=== PATIENT | female | born 1940 | race Caucasian/White ===

== ENCOUNTER 2018-09-15 09:57 | Inpatient (IN) ==
[2018-09-15] MEDS ORDERED: NS 1000 ML 1,000 ML IV ONE (11:17)
[2018-09-15] MEDS ORDERED: PHENERGAN INJ 25 MG IVP ONE (11:19)
--- NOTE | 2018-09-15 11:24 | DR.NAUSEAF ---
HPI Time Seen Time Seen by Provider: 09/15/18 11:10 Primary Care Physician Primary Care Physician: JESSIE LI Complaints Chief Complaint:: PATIENT STATED THAT SHE HAS BEEN HAVING N/V/D SINCE LAST NIGHT. PATIENT STATED THAT SHE THINKS SHE ATE SOMETHING THAT WAS BAD. FRIEND STATED THAT SHE HAS BEEN SEEING JESSIE IN THE OFFICE FOR THE VIRUS AND A IN FECTION OF SOME KIND. SHE IS ALSO COMPLAINING OF WEAKNESS. Source History Provided: Patient Mode of Arrival Mode of Arrival: Ambulatory Timing Onset of Chief Complaint: 09/15/18 PMH PMH Past Medical History: Yes Past Medical History: Diabetes, Hypertension and ME Past Surgical History: Yes Surgical History: Cholecystectomy, Hysterectomy and Ortho Surgery Family History History of Family Medical Conditions: Yes Family Medical History: Diabetes Mellitus, Heart Failure and Hypertension Social History Does patient currently use any type of tobacco product: No Have you used tobacco products in the last 12 months: No Type of Tobacco Use: None Does any household member use tobacco: No Alcohol Use: None Do you use any recreational Drugs:: No Lives With: Alone Lives Where: Home infectious screening In the last 2 months have you had wt loss of >10#?: NO Have you had fever, night sweats or hemotysis?: No Have you traveled outside the country in the last 6 months?: No Isolation: Standard ROS Review of Systems Constitutional: Weakness Eyes: No Symptoms Reported ENTM: No Symptoms Reported Respiratoy: No Symptoms Reported Cardiovascular: No Symptoms Reported Gastrointestinal/Abdominal: Nausea and Vomiting; negative No Symptoms Reported, See HPI, Abdominal Pain, Constipation, Diarrhea, Food Intolerance and Other Genitourinary: No Symptoms Reported Neurological: No Symptoms Reported Musculoskeletal: No Symptoms Reported Integumentary: No Symptoms Reported Hematologic/Lymphatic: No Symptoms Reported Endocrine: No Symptoms Reported Psychiatric: No Symptoms Reported All Other Systems: Reviewed and Negative PE Vital Signs Vitals: Temperature 97.1 F Pulse Rate 95 Respiratory Rate 20 Blood Pressure [Right Arm] 142/64 Blood Pressure [Left Arm] 122/63 Blood Pressure 216/103 O2 Sat by Pulse Oximetry 97 General Limitations: No Limitations General Appearance: Alert and In No Apparent Distress Head Head Exam: Normal Inspection and Atraumatic Eyes Eye exam: Normal Appearance and EOMI ENT ENT Exam: Normal Exam and Normal Oropharynx Neck Neck Exam: Normal Inspection, Full ROM and Trachea Midline Chest Chest Inspection: Normal Inspection and Symmetric Chest Wall Rise Respiratory Respiratory Exam: Normal Lung Sounds Bilat Cardiovascular Cardiovascular Exam: Regular Rate, Normal Rhythm, Normal Heart Sounds, +S1 and +S2 Abdominal Exam Abdominal Exam: Normal Inspection, Normal Bowel Sounds and Soft Rectal Rectal Exam: Deferred External Exam: Female: Deferred Extremities Extremities Exam: Normal Inspection and Full ROM Back Back Exam: Normal Inspection Neurologic Neurological Exam: Alert and Oriented X3 Psychiatric Psychiatric Exam: Normal Affect and Normal Mood Skin Skin Exam: Warm, Dry and Normal Color ROR Labs Reviewed Result Diagrams: 09/15/18 11:42 09/15/18 11:42 Laboratory: WBC 7.7 X10^3/uL (3.6-10.0) 09/15/18 11:42 RBC 4.11 X10^6/uL (3.5-5.4) 09/15/18 11:42 Hgb 13.5 g/dL (12.0-16.0) 09/15/18 11:42 Hct 38.4 % (36.0-47.0) 09/15/18 11:42 MCV 93.2 fL (80.0-100.0) 09/15/18 11:42 MCH 32.8 pg (27.0-34.0) 09/15/18 11:42 MCHC 35.2 g/dL (33.0-35.0) H 09/15/18 11:42 RDW 13.6 % (11.6-16.5) 09/15/18 11:42 Plt Count 225 X10^3/uL (150.0-450.0) 09/15/18 11:42 MPV 8.8 fL (7.4-11.0) 09/15/18 11:42 Neut % (Auto) 64.7 % (42.0-75.0) 09/15/18 11:42 Lymph % (Auto) 23.6 % (21.0-51.0) 09/15/18 11:42 [place] % (Auto) 7.4 % (0.0-13.0) 09/15/18 11:42 Eos % (Auto) 3.3 % (0.9-2.9) H 09/15/18 11:42 Baso % (Auto) 1.0 % (0.2-1.0) 09/15/18 11:42 Neut # (Auto) 5.0 x10^3/uL (2.2-4.8) H 09/15/18 11:42 Lymph # (Auto) 1.8 X10^3/uL (1.3-2.9) 09/15/18 11:42 [place] # (Auto) 0.6 x10^3/uL (0.3-0.8) 09/15/18 11:42 Eos # (Auto) 0.3 x10^3/uL (0.0-0.2) H 09/15/18 11:42 Baso # (Auto) 0.1 X10^3/uL (0.0-0.1) 09/15/18 11:42 Absolute Nucleated RBC 0.0 /100WBC 09/15/18 11:42 Sodium 136 mmol/L (136-145) 09/15/18 11:42 Corrected Sodium 136 mmol/L (136-145) 09/15/18 11:42 Potassium 4.2 mmol/L (3.5-5.1) 09/15/18 11:42 Chloride 102 mmol/L (98-107) 09/15/18 11:42 Carbon Dioxide 25.9 mmol/L (21-32) 09/15/18 11:42 BUN 22 mg/dL (7-18) H 09/15/18 11:42 Creatinine 1.12 mg/dL (0.55-1.02) H 09/15/18 11:42 Est GFR (MDRD) Af Amer > 60 (>60) 09/15/18 11:42 Est GFR (MDRD) Non-Af 50 (>60) L 09/15/18 11:42 Glucose 115 mg/dL (65-99) H 09/15/18 11:42 Calcium 8.9 mg/dL (8.5-10.1) 09/15/18 11:42 Amylase 75 Units/L (25-115) 09/15/18 11:25 Lipase 162 Units/L (73-393) 09/15/18 11:25 XRAY XRAY Interpreted by: Radiologist XRAY Findings: AAS: no acute cardiopulmonary disease. No evidence for obstruction or perfo Diagnosis Discharge Problem: Gastroenteritis, Acute dehydration
[2018-09-15] MEDS ORDERED: PHENERGAN INJ 25 MG ONE (11:29)
[2018-09-15] MEDS ORDERED: NS 1000 ML 1,000 ML ONE (11:29)
--- NOTE | 2018-09-15 11:50 | RAD ---
Examination: Abdomen series with PA chest, four views History: Pain nausea and vomiting Findings: PA chest is essentially normal. Central mediastinal and hilar area limited by overlying metallic clothing artifacts. Abdomen: Additional supine and upright views of abdomen demonstrate normal gas pattern. Surgical clips right upper quadrant. There is no evidence for bowel obstruction, perforation, mass formation or pathologic calcification. Impression: No acute chest or abdominal abnormality noted. Reported By:
[2018-09-15 11:55] LABS: BASOPHILS # (AUTO) 0.1 X10^3/uL (0.0-0.1); EOSINOPHILS # (AUTO) 0.3 x10^3/uL (0.0-0.2); EOSINOPHILS % (AUTO) 3.3 % (0.9-2.9); HEMATOCRIT 38.4 % (36.0-47.0); HEMOGLOBIN 13.5 g/dL (12.0-16.0); LYMPHOCYTES # (AUTO) 1.8 X10^3/uL (1.3-2.9); LYMPHOCYTES % (AUTO) 23.6 % (21.0-51.0); MEAN CORPUSCULAR HEMOGLOBIN 32.8 pg (27.0-34.0); MEAN CORPUSCULAR HGB CONC 35.2 g/dL (33.0-35.0); MEAN CORPUSCULAR VOLUME 93.2 fL (80.0-100.0); MEAN PLATELET VOLUME 8.8 fL (7.4-11.0); MONOCYTES # (AUTO) 0.6 x10^3/uL (0.3-0.8); MONOCYTES % (AUTO) 7.4 % (0.0-13.0); NEUTROPHILS % (AUTO) 64.7 % (42.0-75.0); PLATELET COUNT 225 X10^3/uL (150.0-450.0); RED BLOOD COUNT 4.11 X10^6/uL (3.5-5.4); RED CELL DISTRIBUTION WIDTH 13.6 % (11.6-16.5); WHITE BLOOD COUNT 7.7 X10^3/uL (3.6-10.0)
[2018-09-15 12:04] LABS: BLOOD UREA NITROGEN 22 mg/dL (7-18); CALCIUM 8.9 mg/dL (8.5-10.1); CARBON DIOXIDE 25.9 mmol/L (21-32); CHLORIDE 102 mmol/L (98-107); COR NA(FOR HYPERGLY) 136 mmol/L (136-145); CREATININE 1.12 mg/dL (0.55-1.02); SODIUM 136 mmol/L (136-145); eGFR NON BLACK RACES 50 (>60)
[2018-09-15 12:20] LABS: AMYLASE 75 Units/L (25-115); LIPASE 162 Units/L (73-393)
[2018-09-15] MEDS ORDERED: ZOFRAN INJ 4 MG VIAL IVP PRN (16:03)
[2018-09-15] MEDS ORDERED: PREVNAR 13 IM ONE (16:49)
[2018-09-15] MEDS ORDERED: NS 1000 ML 1,000 ML IV SCH (17:00)
[2018-09-15] MEDS ORDERED: COREG TAB 3.125 MG PO SCH (21:00)
[2018-09-15] MEDS: COREG TAB 3.125 MG PO SCH (21:35)
[2018-09-16 04:56] LABS: BLOOD UREA NITROGEN 14 mg/dL (7-18); CARBON DIOXIDE 22.6 mmol/L (21-32); CHLORIDE 109 mmol/L (98-107); CREATININE 0.96 mg/dL (0.55-1.02); SODIUM 141 mmol/L (136-145); eGFR NON BLACK RACES 60 (>60)
[2018-09-16 05:34] LABS: BASOPHILS # (AUTO) 0.1 X10^3/uL (0.0-0.1); BASOPHILS % (AUTO) 0.9 % (0.2-1.0); EOSINOPHILS # (AUTO) 0.3 x10^3/uL (0.0-0.2); EOSINOPHILS % (AUTO) 3.9 % (0.9-2.9); HEMATOCRIT 33.4 % (36.0-47.0); HEMOGLOBIN 11.5 g/dL (12.0-16.0); LYMPHOCYTES # (AUTO) 2.2 X10^3/uL (1.3-2.9); MEAN CORPUSCULAR HEMOGLOBIN 30.9 pg (27.0-34.0); MEAN CORPUSCULAR HGB CONC 34.5 g/dL (33.0-35.0); MEAN CORPUSCULAR VOLUME 89.6 fL (80.0-100.0); MEAN PLATELET VOLUME 8.2 fL (7.4-11.0); MONOCYTES # (AUTO) 0.6 x10^3/uL (0.3-0.8); MONOCYTES % (AUTO) 9.3 % (0.0-13.0); NEUTROPHILS # (AUTO) 3.4 x10^3/uL (2.2-4.8); NEUTROPHILS % (AUTO) 51.9 % (42.0-75.0); PLATELET COUNT 179 X10^3/uL (150.0-450.0); RED BLOOD COUNT 3.73 X10^6/uL (3.5-5.4); RED CELL DISTRIBUTION WIDTH 13.9 % (11.6-16.5); WHITE BLOOD COUNT 6.5 X10^3/uL (3.6-10.0)
[2018-09-16] MEDS ORDERED: TYLENOL 325 MG TAB PO PRN (08:30)
[2018-09-16] MEDS: SYNTHROID 112 mcg TAB PO SCH (08:31)
[2018-09-16] MEDS: PROTONIX INJ 40 MG VIAL IVP SCH (08:31)
[2018-09-16] MEDS: COREG TAB 3.125 MG PO SCH ×2 (08:31→21:06)
[2018-09-16] MEDS ORDERED: TYLENOL 325 MG TAB PO ONE (08:54)
[2018-09-16] MEDS: NS 1000 ML 1,000 ML IV SCH (13:49)
[2018-09-16] MEDS ORDERED: LEVAQUIN PREMIX IV 500 MG 500 MG/100 ML BAG IV ONE (14:40)
[2018-09-16] MEDS ORDERED: PREVNAR 13 IM ONE (14:41)
[2018-09-16] MEDS: LEVAQUIN PREMIX IV 500 MG 500 MG/100 ML BAG IV SCH (14:46)
[2018-09-16] MEDS ORDERED: ROBITUSSIN DM PO PRN (15:00)
[2018-09-16] MEDS: ROBITUSSIN DM PO SCH (21:06)
[2018-09-17] MEDS: ROBITUSSIN DM PO SCH ×4 (02:05→20:20)
[2018-09-17] MEDS: NS 1000 ML 1,000 ML IV SCH ×2 (02:06→16:10)
[2018-09-17 05:40] LABS: ALANINE AMINOTRANSFERASE 17 Units/L (12-78); ALBUMIN 2.6 g/dL (3.4-5.0); ALKALINE PHOSPHATASE 51 Units/L (46-116); ASPARTATE AMINO TRANSFERASE 16 Units/L (15-37); BLOOD UREA NITROGEN 9 mg/dL (7-18); CALCIUM 7.7 mg/dL (8.5-10.1); CARBON DIOXIDE 22.3 mmol/L (21-32); CHLORIDE 108 mmol/L (98-107); COR CA(FOR HYPOALB) 8.8 mg/dL (8.5-10.1); CREATININE 0.98 mg/dL (0.55-1.02); SODIUM 142 mmol/L (136-145); TOTAL PROTEIN 5.5 g/dL (6.4-8.2); eGFR NON BLACK RACES 58 (>60)
[2018-09-17 05:55] VITALS: BMI 30.2
[2018-09-17 05:56] LABS: BASOPHILS % (AUTO) 0.5 % (0.2-1.0); EOSINOPHILS # (AUTO) 0.3 x10^3/uL (0.0-0.2); EOSINOPHILS % (AUTO) 3.4 % (0.9-2.9); HEMOGLOBIN 10.9 g/dL (12.0-16.0); LYMPHOCYTES # (AUTO) 1.9 X10^3/uL (1.3-2.9); LYMPHOCYTES % (AUTO) 23.8 % (21.0-51.0); MEAN CORPUSCULAR HEMOGLOBIN 32.6 pg (27.0-34.0); MEAN CORPUSCULAR HGB CONC 35.1 g/dL (33.0-35.0); MEAN PLATELET VOLUME 8.3 fL (7.4-11.0); MONOCYTES # (AUTO) 0.8 x10^3/uL (0.3-0.8); MONOCYTES % (AUTO) 10.1 % (0.0-13.0); NEUTROPHILS # (AUTO) 4.9 x10^3/uL (2.2-4.8); NEUTROPHILS % (AUTO) 62.2 % (42.0-75.0); PLATELET COUNT 172 X10^3/uL (150.0-450.0); RED BLOOD COUNT 3.33 X10^6/uL (3.5-5.4); RED CELL DISTRIBUTION WIDTH 13.8 % (11.6-16.5); WHITE BLOOD COUNT 7.8 X10^3/uL (3.6-10.0)
[2018-09-17] MEDS: LEVAQUIN PREMIX IV 500 MG 500 MG/100 ML BAG IV SCH (09:35)
[2018-09-17] MEDS: SYNTHROID 112 mcg TAB PO SCH (09:36)
[2018-09-17] MEDS: PROTONIX INJ 40 MG VIAL IVP SCH (09:36)
[2018-09-17] MEDS: COREG TAB 3.125 MG PO SCH ×2 (09:36→20:19)
--- NOTE | 2018-09-17 13:32 | RAD ---
History: Fever and cough Study: PA and lateral chest Comparison: October 18, 2014 Findings: The lungs are grossly clear and the heart and mediastinum are unremarkable. There is no edema or effusion. No bony abnormality is demonstrated. Impression: No acute cardiopulmonary disease Reported By:
--- NOTE | 2018-09-17 13:53 | PCM.PROG ---
Progress Note - Progress Note for Day of Date of Exam: 09/17/18 - Subjective Subjective: 78 WF ER ADMISSION AFTER PRESENTING WITH CO SEVERE WEAKENSS, N/V/D. PT HAS BEEN ILL WITH FEVER, CCC FOR 1 WEEK, HAD ROCEPHIN IM AND STEROIDS OUTPT AND GIVEN PO TAMIFLU AND ZITHROMAX. PT STATES HER COUGH IS NO BETTER AND SHE HAD N/V/D, CANT EAT. STOOL STUDIES ORDERED THIS AM, UA, CXR AND INFLUENZA SWAB. RESP CONSULT FOR JET NEBS AND SPUTUM CULTURE - Past Medical Family Social History Past Med/Fam/Surg Hx: No changes since H&P Allergies: Allergies Penicillins Allergy (Verified 09/15/18 16:24) - Review of Systems ROS: No change since H&P - Vital Signs and I&O's Vital Signs: Temperature 99.0 F Pulse Rate [Right Radial] 72 Pulse Rate 95 Respiratory Rate 18 Blood Pressure [Right Arm] 131/64 Blood Pressure [Left Arm] 159/71 Blood Pressure 216/103 O2 Sat by Pulse Oximetry 96 Intake and Output: Intake & Output 09/15/18 09/16/18 09/17/18 09/18/18 11:59 11:59 11:59 11:59 Intake Total 2060 3080 / 3080 Balance 2060 3080 / 3080 - Physical Exam Oriented: Normal Eyes: Normal Ear: Normal Nose: Normal Throat: Dry Respiratory: Wheezes Cardiovascular: Normal : Normal Auscultation: Bowel Sounds: Increased Tenderness: Diffuse, Mild Skin: Decreased Turgur Musculoskeletal: Back:Lumbar Psychiatric: Anxiety Affect: Anxious Speech Pattern: Clear, Appropriate - Laboratory and Diagnostics Result Diagrams: 09/17/18 05:45 09/17/18 04:42 Labs: Laboratory WBC 7.8 X10^3/uL (3.6-10.0) 09/17/18 05:45 RBC 3.33 X10^6/uL (3.5-5.4) L 09/17/18 05:45 Hgb 10.9 g/dL (12.0-16.0) L 09/17/18 05:45 Hct 31.0 % (36.0-47.0) L 09/17/18 05:45 MCV 93.0 fL (80.0-100.0) 09/17/18 05:45 MCH 32.6 pg (27.0-34.0) 09/17/18 05:45 MCHC 35.1 g/dL (33.0-35.0) H 09/17/18 05:45 RDW 13.8 % (11.6-16.5) 09/17/18 05:45 Plt Count 172 X10^3/uL (150.0-450.0) 09/17/18 05:45 MPV 8.3 fL (7.4-11.0) 09/17/18 05:45 Neut % (Auto) 62.2 % (42.0-75.0) 09/17/18 05:45 Lymph % (Auto) 23.8 % (21.0-51.0) 09/17/18 05:45 [place] % (Auto) 10.1 % (0.0-13.0) 09/17/18 05:45 Eos % (Auto) 3.4 % (0.9-2.9) H 09/17/18 05:45 Baso % (Auto) 0.5 % (0.2-1.0) 09/17/18 05:45 Neut # (Auto) 4.9 x10^3/uL (2.2-4.8) H 09/17/18 05:45 Lymph # (Auto) 1.9 X10^3/uL (1.3-2.9) 09/17/18 05:45 [place] # (Auto) 0.8 x10^3/uL (0.3-0.8) 09/17/18 05:45 Eos # (Auto) 0.3 x10^3/uL (0.0-0.2) H 09/17/18 05:45 Baso # (Auto) 0.0 X10^3/uL (0.0-0.1) 09/17/18 05:45 Absolute Nucleated RBC 0.1 /100WBC 09/17/18 05:45 Sodium 142 mmol/L (136-145) 09/17/18 04:42 Corrected Sodium TNP 09/17/18 04:42 Potassium 3.8 mmol/L (3.5-5.1) 09/17/18 04:42 Chloride 108 mmol/L (98-107) H 09/17/18 04:42 Carbon Dioxide 22.3 mmol/L (21-32) 09/17/18 04:42 BUN 9 mg/dL (7-18) 09/17/18 04:42 Creatinine 0.98 mg/dL (0.55-1.02) 09/17/18 04:42 Est GFR (MDRD) Af Amer > 60 (>60) 09/17/18 04:42 Est GFR (MDRD) Non-Af 58 (>60) L 09/17/18 04:42 Glucose 87 mg/dL (65-99) 09/17/18 04:42 POC Glucose (mg/dL) 87 mg/dL (65-99) 09/16/18 05:58 Calcium 7.7 mg/dL (8.5-10.1) L 09/17/18 04:42 Corrected Calcium 8.8 mg/dL (8.5-10.1) 09/17/18 04:42 Total Bilirubin 0.30 mg/dL (0.2-1.0) 09/17/18 04:42 AST 16 Units/L (15-37) 09/17/18 04:42 ALT 17 Units/L (12-78) 09/17/18 04:42 Alkaline Phosphatase 51 Units/L (46-116) 09/17/18 04:42 Total Protein 5.5 g/dL (6.4-8.2) L 09/17/18 04:42 Albumin 2.6 g/dL (3.4-5.0) L 09/17/18 04:42 Globulin 2.9 g/dL (2.5-4.5) 09/17/18 04:42 Albumin/Globulin Ratio 0.9 Ratio (1.1-2.1) L 09/17/18 04:42 Amylase 75 Units/L (25-115) 09/15/18 11:25 Lipase 162 Units/L (73-393) 09/15/18 11:25 Influenza Type A (PCR) Negative (NEGATIVE) 09/17/18 12:30 Influenza Type B (PCR) Negative (NEGATIVE) 09/17/18 12:30 - Plan (1) Acute bronchitis Status: Acute Plan: RESP CONSULT. SPUTUM CULTURE. GENTLE IV HYDRATION. ANTITUSSIVE, REPEAT FLU SWAB, CXR AND AM LABS (2) Flu-like symptoms Status: Acute (3) Gastroenteritis Status: Acute Plan: STOOL STUDIES (4) Acute dehydration Status: Acute
[2018-09-17] MEDS: XOPENEX 1.25 MG/3 ML NEBULE NEB SCH ×2 (16:55→20:36)
[2018-09-17 17:20] LABS: BILIRUBIN,URINE NEGATIVE (NEGATIVE); BLOOD/HEMOGLOBIN,URINE NEGATIVE (NEGATIVE); GLUCOSE, URINE NEGATIVE (NEGATIVE); KETONES,URINE NEGATIVE (NEGATIVE); LEUKOCYTE ESTERASE ,URINE NEGATIVE (NEGATIVE); NITRITES,URINE NEGATIVE (NEGATIVE); PH,URINE 6.5 (5.0 - 8.0); PROTEIN,URINE NEGATIVE (NEGATIVE); UROBILINOGEN,URINE NORMAL (NORMAL)
[2018-09-17 17:22] LABS: APPEARANCE,URINE CLEAR (CLEAR); COLOR,URINE PALE YELLOW (YELLOW)
[2018-09-18] MEDS: ROBITUSSIN DM PO SCH ×4 (05:13→20:22)
[2018-09-18] MEDS: NS 1000 ML 1,000 ML IV SCH ×2 (05:13→13:42)
[2018-09-18 05:27] LABS: ALANINE AMINOTRANSFERASE 16 Units/L (12-78); ALBUMIN 2.6 g/dL (3.4-5.0); ALKALINE PHOSPHATASE 57 Units/L (46-116); ASPARTATE AMINO TRANSFERASE 16 Units/L (15-37); BLOOD UREA NITROGEN 7 mg/dL (7-18); CARBON DIOXIDE 25.2 mmol/L (21-32); CHLORIDE 107 mmol/L (98-107); COR CA(FOR HYPOALB) 9.1 mg/dL (8.5-10.1); SODIUM 141 mmol/L (136-145); TOTAL PROTEIN 5.6 g/dL (6.4-8.2); eGFR NON BLACK RACES 57 (>60)
[2018-09-18 06:36] LABS: BASOPHILS # (AUTO) 0.1 X10^3/uL (0.0-0.1); BASOPHILS % (AUTO) 0.7 % (0.2-1.0); EOSINOPHILS # (AUTO) 0.3 x10^3/uL (0.0-0.2); EOSINOPHILS % (AUTO) 3.3 % (0.9-2.9); HEMATOCRIT 30.4 % (36.0-47.0); HEMOGLOBIN 10.5 g/dL (12.0-16.0); LYMPHOCYTES # (AUTO) 2.1 X10^3/uL (1.3-2.9); LYMPHOCYTES % (AUTO) 26.6 % (21.0-51.0); MEAN CORPUSCULAR HEMOGLOBIN 31.1 pg (27.0-34.0); MEAN CORPUSCULAR HGB CONC 34.5 g/dL (33.0-35.0); MEAN CORPUSCULAR VOLUME 90.3 fL (80.0-100.0); MEAN PLATELET VOLUME 8.4 fL (7.4-11.0); MONOCYTES # (AUTO) 0.8 x10^3/uL (0.3-0.8); MONOCYTES % (AUTO) 10.7 % (0.0-13.0); NEUTROPHILS # (AUTO) 4.6 x10^3/uL (2.2-4.8); NEUTROPHILS % (AUTO) 58.7 % (42.0-75.0); PLATELET COUNT 155 X10^3/uL (150.0-450.0); RED BLOOD COUNT 3.37 X10^6/uL (3.5-5.4); RED CELL DISTRIBUTION WIDTH 13.8 % (11.6-16.5); WHITE BLOOD COUNT 7.9 X10^3/uL (3.6-10.0)
[2018-09-18] MEDS: XOPENEX 1.25 MG/3 ML NEBULE NEB SCH ×4 (09:00→20:31)
[2018-09-18] MEDS: LEVAQUIN PREMIX IV 500 MG 500 MG/100 ML BAG IV SCH (09:44)
[2018-09-18] MEDS: COREG TAB 3.125 MG PO SCH ×2 (09:44→20:21)
[2018-09-18] MEDS: SYNTHROID 112 mcg TAB PO SCH (09:45)
[2018-09-18] MEDS: PROTONIX INJ 40 MG VIAL IVP SCH (09:45)
[2018-09-18] MEDS: SOLU-Medrol 40 MG VIAL IVP SCH ×3 (13:43→21:44)
[2018-09-18] MEDS: HumuLIN R SUBCUT PRN ×2 (16:00→20:22)
[2018-09-18] MEDS: SNACK - Diabetic Appropriate PO SCH (20:20)
[2018-09-18] MEDS: COLACE CAP 100 MG PO PRN (21:44)
[2018-09-19] MEDS: ROBITUSSIN DM PO SCH ×4 (03:54→21:22)
[2018-09-19 04:58] LABS: BASOPHILS % (AUTO) 0.2 % (0.2-1.0); HEMATOCRIT 32.2 % (36.0-47.0); HEMOGLOBIN 11.2 g/dL (12.0-16.0); LYMPHOCYTES % (AUTO) 11.3 % (21.0-51.0); MEAN CORPUSCULAR HEMOGLOBIN 32.9 pg (27.0-34.0); MEAN CORPUSCULAR HGB CONC 34.8 g/dL (33.0-35.0); MEAN CORPUSCULAR VOLUME 94.3 fL (80.0-100.0); MEAN PLATELET VOLUME 8.5 fL (7.4-11.0); MONOCYTES # (AUTO) 0.1 x10^3/uL (0.3-0.8); MONOCYTES % (AUTO) 0.7 % (0.0-13.0); NEUTROPHILS # (AUTO) 7.9 x10^3/uL (2.2-4.8); NEUTROPHILS % (AUTO) 87.8 % (42.0-75.0); PLATELET COUNT 169 X10^3/uL (150.0-450.0); RED BLOOD COUNT 3.41 X10^6/uL (3.5-5.4); RED CELL DISTRIBUTION WIDTH 13.6 % (11.6-16.5)
[2018-09-19 05:37] LABS: ALANINE AMINOTRANSFERASE 20 Units/L (12-78); ALBUMIN 2.8 g/dL (3.4-5.0); ALKALINE PHOSPHATASE 61 Units/L (46-116); ASPARTATE AMINO TRANSFERASE 17 Units/L (15-37); BLOOD UREA NITROGEN 12 mg/dL (7-18); CALCIUM 8.1 mg/dL (8.5-10.1); CARBON DIOXIDE 20.9 mmol/L (21-32); CHLORIDE 105 mmol/L (98-107); COR CA(FOR HYPOALB) 9.1 mg/dL (8.5-10.1); COR NA(FOR HYPERGLY) 140 mmol/L (136-145); CREATININE 1.08 mg/dL (0.55-1.02); SODIUM 138 mmol/L (136-145); TOTAL PROTEIN 6.1 g/dL (6.4-8.2); eGFR NON BLACK RACES 52 (>60)
[2018-09-19] MEDS: NS 1000 ML 1,000 ML IV SCH ×2 (06:02→21:21)
[2018-09-19] MEDS: HumuLIN R SUBCUT PRN ×2 (06:03→22:45)
[2018-09-19] MEDS: SYNTHROID 112 mcg TAB PO SCH (09:09)
[2018-09-19] MEDS: XOPENEX 1.25 MG/3 ML NEBULE NEB SCH ×4 (09:09→20:50)
[2018-09-19] MEDS: PROTONIX INJ 40 MG VIAL IVP SCH (09:09)
[2018-09-19] MEDS: COREG TAB 3.125 MG PO SCH ×2 (09:09→21:22)
[2018-09-19] MEDS: LEVAQUIN PREMIX IV 500 MG 500 MG/100 ML BAG IV SCH (09:09)
--- NOTE | 2018-09-19 17:08 | PCM.PROG ---
Progress Note - Progress Note for Day of Date of Exam: 09/18/18 - Subjective Subjective: 78 WF ER ADMISSION AFTER PRESENTING WITH CO SEVERE WEAKENSS, N/V/D. PT HAS BEEN ILL WITH FEVER, CCC FOR 1 WEEK, HAD ROCEPHIN IM AND STEROIDS OUTPT AND GIVEN PO TAMIFLU AND ZITHROMAX. PT STATES HER COUGH IS NO BETTER AND SHE HAD N/V/D, CANT EAT. STOOL STUDIES ORDERED BUT PT HAS NOT HAD BM. PT CONTINUES WITH MILD LOWER LUNG WHEEZES AND COUGH - Past Medical Family Social History Past Med/Fam/Surg Hx: No changes since H&P Allergies: Allergies Penicillins Allergy (Verified 09/15/18 16:24) - Review of Systems ROS: No change since H&P - Vital Signs and I&O's Vital Signs: Temperature 98.3 F Pulse Rate [Right Radial] 72 Pulse Rate 73 Respiratory Rate 20 Blood Pressure [Right Arm] 162/69 Blood Pressure [Left Arm] 142/67 Blood Pressure 216/103 O2 Sat by Pulse Oximetry 96 Intake and Output: Intake & Output 09/17/18 09/18/18 09/19/18 09/20/18 11:59 11:59 11:59 11:59 Intake Total 3080 / 3080 1740 / 1740 3320 / 3320 1060 / 1060 Balance 3080 / 3080 1740 / 1740 3320 / 3320 1060 / 1060 - Physical Exam Oriented: Normal Eyes: Normal Ear: Normal Nose: Normal Throat: Dry Respiratory: Wheezes Cardiovascular: Normal : Normal Auscultation: Bowel Sounds: Increased Tenderness: Diffuse, Mild Skin: Decreased Turgur Musculoskeletal: Back:Lumbar Psychiatric: Anxiety Affect: Anxious Speech Pattern: Clear, Appropriate - Laboratory and Diagnostics Result Diagrams: 09/19/18 04:52 09/19/18 04:52 Labs: 09/17/18 13:34 Sputum - Expectorated Sputum Sputum Culture - Preliminary 09/17/18 13:34 Sputum - Expectorated Sputum - Final Laboratory WBC 9.0 X10^3/uL (3.6-10.0) 09/19/18 04:52 RBC 3.41 X10^6/uL (3.5-5.4) L 09/19/18 04:52 Hgb 11.2 g/dL (12.0-16.0) L 09/19/18 04:52 Hct 32.2 % (36.0-47.0) L 09/19/18 04:52 MCV 94.3 fL (80.0-100.0) 09/19/18 04:52 MCH 32.9 pg (27.0-34.0) 09/19/18 04:52 MCHC 34.8 g/dL (33.0-35.0) 09/19/18 04:52 RDW 13.6 % (11.6-16.5) 09/19/18 04:52 Plt Count 169 X10^3/uL (150.0-450.0) 09/19/18 04:52 MPV 8.5 fL (7.4-11.0) 09/19/18 04:52 Neut % (Auto) 87.8 % (42.0-75.0) H 09/19/18 04:52 Lymph % (Auto) 11.3 % (21.0-51.0) L 09/19/18 04:52 [place] % (Auto) 0.7 % (0.0-13.0) 09/19/18 04:52 Eos % (Auto) 0.0 % (0.9-2.9) L 09/19/18 04:52 Baso % (Auto) 0.2 % (0.2-1.0) 09/19/18 04:52 Neut # (Auto) 7.9 x10^3/uL (2.2-4.8) H 09/19/18 04:52 Lymph # (Auto) 1.0 X10^3/uL (1.3-2.9) L 09/19/18 04:52 [place] # (Auto) 0.1 x10^3/uL (0.3-0.8) L 09/19/18 04:52 Eos # (Auto) 0.0 x10^3/uL (0.0-0.2) 09/19/18 04:52 Baso # (Auto) 0.0 X10^3/uL (0.0-0.1) 09/19/18 04:52 Absolute Nucleated RBC 0.0 /100WBC 09/19/18 04:52 Sodium 138 mmol/L (136-145) 09/19/18 04:52 Corrected Sodium 140 mmol/L (136-145) 09/19/18 04:52 Potassium 4.0 mmol/L (3.5-5.1) 09/19/18 04:52 Chloride 105 mmol/L (98-107) 09/19/18 04:52 Carbon Dioxide 20.9 mmol/L (21-32) L 09/19/18 04:52 BUN 12 mg/dL (7-18) 09/19/18 04:52 Creatinine 1.08 mg/dL (0.55-1.02) H 09/19/18 04:52 Est GFR (MDRD) Af Amer > 60 (>60) 09/19/18 04:52 Est GFR (MDRD) Non-Af 52 (>60) L 09/19/18 04:52 Glucose 202 mg/dL (65-99) H 09/19/18 04:52 POC Glucose (mg/dL) 169 mg/dL (65-99) H 09/19/18 16:34 Calcium 8.1 mg/dL (8.5-10.1) L 09/19/18 04:52 Corrected Calcium 9.1 mg/dL (8.5-10.1) 09/19/18 04:52 Total Bilirubin 0.30 mg/dL (0.2-1.0) 09/19/18 04:52 AST 17 Units/L (15-37) 09/19/18 04:52 ALT 20 Units/L (12-78) 09/19/18 04:52 Alkaline Phosphatase 61 Units/L (46-116) 09/19/18 04:52 Total Protein 6.1 g/dL (6.4-8.2) L 09/19/18 04:52 Albumin 2.8 g/dL (3.4-5.0) L 09/19/18 04:52 Globulin 3.3 g/dL (2.5-4.5) 09/19/18 04:52 Albumin/Globulin Ratio 0.8 Ratio (1.1-2.1) L 09/19/18 04:52 Amylase 75 Units/L (25-115) 09/15/18 11:25 Lipase 162 Units/L (73-393) 09/15/18 11:25 Specimen Type Clean catch urine 09/17/18 17:10 Urine Color Pale yellow (YELLOW) 09/17/18 17:10 Urine Appearance Clear (CLEAR) 09/17/18 17:10 Urine pH 6.5 (5.0 - 8.0) 09/17/18 17:10 Ur Specific [place] 1.010 (1.000-1.030) 09/17/18 17:10 Urine Protein Negative (NEGATIVE) 09/17/18 17:10 Urine Glucose (UA) Negative (NEGATIVE) 09/17/18 17:10 Urine Ketones Negative (NEGATIVE) 09/17/18 17:10 Urine Occult Blood Negative (NEGATIVE) 09/17/18 17:10 Urine Nitrite Negative (NEGATIVE) 09/17/18 17:10 Urine Bilirubin Negative (NEGATIVE) 09/17/18 17:10 Urine Urobilinogen Normal (NORMAL) 09/17/18 17:10 Ur Leukocyte Esterase Negative (NEGATIVE) 09/17/18 17:10 Influenza Type A (PCR) Negative (NEGATIVE) 09/17/18 12:30 Influenza Type B (PCR) Negative (NEGATIVE) 09/17/18 12:30 - Plan (1) Acute bronchitis Status: Acute Plan: RESP CONSULT. SPUTUM CULTURE. GENTLE IV HYDRATION. ANTITUSSIVE, CXR AND AM LABS. BUEDESONIDE, IV SOLU MEDROL, BLOOD SUGAR CONTROL (2) Flu-like symptoms Status: Acute (3) Gastroenteritis Status: Acute Plan: STOOL STUDIES PENDING PT COLLECTION (4) Acute dehydration Status: Acute
--- NOTE | 2018-09-19 17:10 | PCM.PROG ---
Progress Note - Progress Note for Day of Date of Exam: 09/19/18 - Subjective Subjective: 78 WF ER ADMISSION AFTER PRESENTING WITH CO SEVERE WEAKENSS, N/V/D. WITH ACUTE BRONCHITIS. STOOL STUDIES ORDERED BUT PT HAS NOT HAD BM. PT CONTINUES WITH MILD LOWER LUNG WHEEZES AND COUGH WITH CO FEELING WEAK - Past Medical Family Social History Past Med/Fam/Surg Hx: No changes since H&P Allergies: Allergies Penicillins Allergy (Verified 09/15/18 16:24) - Review of Systems ROS: No change since H&P - Vital Signs and I&O's Vital Signs: Temperature 98.3 F Pulse Rate [Right Radial] 72 Pulse Rate 73 Respiratory Rate 20 Blood Pressure [Right Arm] 162/69 Blood Pressure [Left Arm] 142/67 Blood Pressure 216/103 O2 Sat by Pulse Oximetry 96 Intake and Output: Intake & Output 09/17/18 09/18/18 09/19/18 09/20/18 11:59 11:59 11:59 11:59 Intake Total 3080 / 3080 1740 / 1740 3320 / 3320 1060 / 1060 Balance 3080 / 3080 1740 / 1740 3320 / 3320 1060 / 1060 - Physical Exam Oriented: Normal Eyes: Normal Ear: Normal Nose: Normal Throat: Dry Respiratory: Wheezes Cardiovascular: Normal : Normal Auscultation: Bowel Sounds: Increased Tenderness: Diffuse, Mild Skin: Decreased Turgur Musculoskeletal: Back:Lumbar Psychiatric: Anxiety Affect: Anxious Speech Pattern: Clear, Appropriate - Laboratory and Diagnostics Result Diagrams: 09/19/18 04:52 09/19/18 04:52 Labs: 09/17/18 13:34 Sputum - Expectorated Sputum Sputum Culture - Preliminary 09/17/18 13:34 Sputum - Expectorated Sputum - Final Laboratory WBC 9.0 X10^3/uL (3.6-10.0) 09/19/18 04:52 RBC 3.41 X10^6/uL (3.5-5.4) L 09/19/18 04:52 Hgb 11.2 g/dL (12.0-16.0) L 09/19/18 04:52 Hct 32.2 % (36.0-47.0) L 09/19/18 04:52 MCV 94.3 fL (80.0-100.0) 09/19/18 04:52 MCH 32.9 pg (27.0-34.0) 09/19/18 04:52 MCHC 34.8 g/dL (33.0-35.0) 09/19/18 04:52 RDW 13.6 % (11.6-16.5) 09/19/18 04:52 Plt Count 169 X10^3/uL (150.0-450.0) 09/19/18 04:52 MPV 8.5 fL (7.4-11.0) 09/19/18 04:52 Neut % (Auto) 87.8 % (42.0-75.0) H 09/19/18 04:52 Lymph % (Auto) 11.3 % (21.0-51.0) L 09/19/18 04:52 [place] % (Auto) 0.7 % (0.0-13.0) 09/19/18 04:52 Eos % (Auto) 0.0 % (0.9-2.9) L 09/19/18 04:52 Baso % (Auto) 0.2 % (0.2-1.0) 09/19/18 04:52 Neut # (Auto) 7.9 x10^3/uL (2.2-4.8) H 09/19/18 04:52 Lymph # (Auto) 1.0 X10^3/uL (1.3-2.9) L 09/19/18 04:52 [place] # (Auto) 0.1 x10^3/uL (0.3-0.8) L 09/19/18 04:52 Eos # (Auto) 0.0 x10^3/uL (0.0-0.2) 09/19/18 04:52 Baso # (Auto) 0.0 X10^3/uL (0.0-0.1) 09/19/18 04:52 Absolute Nucleated RBC 0.0 /100WBC 09/19/18 04:52 Sodium 138 mmol/L (136-145) 09/19/18 04:52 Corrected Sodium 140 mmol/L (136-145) 09/19/18 04:52 Potassium 4.0 mmol/L (3.5-5.1) 09/19/18 04:52 Chloride 105 mmol/L (98-107) 09/19/18 04:52 Carbon Dioxide 20.9 mmol/L (21-32) L 09/19/18 04:52 BUN 12 mg/dL (7-18) 09/19/18 04:52 Creatinine 1.08 mg/dL (0.55-1.02) H 09/19/18 04:52 Est GFR (MDRD) Af Amer > 60 (>60) 09/19/18 04:52 Est GFR (MDRD) Non-Af 52 (>60) L 09/19/18 04:52 Glucose 202 mg/dL (65-99) H 09/19/18 04:52 POC Glucose (mg/dL) 169 mg/dL (65-99) H 09/19/18 16:34 Calcium 8.1 mg/dL (8.5-10.1) L 09/19/18 04:52 Corrected Calcium 9.1 mg/dL (8.5-10.1) 09/19/18 04:52 Total Bilirubin 0.30 mg/dL (0.2-1.0) 09/19/18 04:52 AST 17 Units/L (15-37) 09/19/18 04:52 ALT 20 Units/L (12-78) 09/19/18 04:52 Alkaline Phosphatase 61 Units/L (46-116) 09/19/18 04:52 Total Protein 6.1 g/dL (6.4-8.2) L 09/19/18 04:52 Albumin 2.8 g/dL (3.4-5.0) L 09/19/18 04:52 Globulin 3.3 g/dL (2.5-4.5) 09/19/18 04:52 Albumin/Globulin Ratio 0.8 Ratio (1.1-2.1) L 09/19/18 04:52 Amylase 75 Units/L (25-115) 09/15/18 11:25 Lipase 162 Units/L (73-393) 09/15/18 11:25 Specimen Type Clean catch urine 09/17/18 17:10 Urine Color Pale yellow (YELLOW) 09/17/18 17:10 Urine Appearance Clear (CLEAR) 09/17/18 17:10 Urine pH 6.5 (5.0 - 8.0) 09/17/18 17:10 Ur Specific [place] 1.010 (1.000-1.030) 09/17/18 17:10 Urine Protein Negative (NEGATIVE) 09/17/18 17:10 Urine Glucose (UA) Negative (NEGATIVE) 09/17/18 17:10 Urine Ketones Negative (NEGATIVE) 09/17/18 17:10 Urine Occult Blood Negative (NEGATIVE) 09/17/18 17:10 Urine Nitrite Negative (NEGATIVE) 09/17/18 17:10 Urine Bilirubin Negative (NEGATIVE) 09/17/18 17:10 Urine Urobilinogen Normal (NORMAL) 09/17/18 17:10 Ur Leukocyte Esterase Negative (NEGATIVE) 09/17/18 17:10 Influenza Type A (PCR) Negative (NEGATIVE) 09/17/18 12:30 Influenza Type B (PCR) Negative (NEGATIVE) 09/17/18 12:30 - Plan (1) Acute bronchitis Status: Acute Plan: RESP CONSULT. SPUTUM CULTURE. GENTLE IV HYDRATION. ANTITUSSIVE, CXR AND AM LABS, LACTIC ACID. BUEDESONIDE, IV SOLU MEDROL, BLOOD SUGAR CONTROL (2) Flu-like symptoms Status: Acute (3) Gastroenteritis Status: Acute Plan: STOOL STUDIES PENDING PT COLLECTION (4) Acute dehydration Status: Acute Plan: IMPROVING
[2018-09-19] MEDS: COLACE CAP 100 MG PO PRN (21:22)
[2018-09-19] MEDS ORDERED: MILK OF MAGNESIA PO PRN (22:01)
[2018-09-19] MEDS: SNACK - Diabetic Appropriate PO SCH (22:01)
[2018-09-20] MEDS: NS 1000 ML 1,000 ML IV SCH (02:30)
[2018-09-20] MEDS: ROBITUSSIN DM PO SCH ×2 (04:20→08:55)
[2018-09-20 05:32] LABS: ALANINE AMINOTRANSFERASE 20 Units/L (12-78); ALBUMIN 2.4 g/dL (3.4-5.0); ALKALINE PHOSPHATASE 51 Units/L (46-116); ASPARTATE AMINO TRANSFERASE 16 Units/L (15-37); BLOOD UREA NITROGEN 12 mg/dL (7-18); CALCIUM 7.7 mg/dL (8.5-10.1); CARBON DIOXIDE 22.8 mmol/L (21-32); CHLORIDE 111 mmol/L (98-107); CREATININE 0.96 mg/dL (0.55-1.02); SODIUM 145 mmol/L (136-145); TOTAL PROTEIN 5.3 g/dL (6.4-8.2); eGFR NON BLACK RACES 60 (>60)
[2018-09-20 05:55] LABS: BASOPHILS % (AUTO) 0.3 % (0.2-1.0); EOSINOPHILS % (AUTO) 0.3 % (0.9-2.9); HEMATOCRIT 29.4 % (36.0-47.0); HEMOGLOBIN 10.2 g/dL (12.0-16.0); LYMPHOCYTES # (AUTO) 2.8 X10^3/uL (1.3-2.9); LYMPHOCYTES % (AUTO) 27.1 % (21.0-51.0); MEAN CORPUSCULAR HEMOGLOBIN 31.1 pg (27.0-34.0); MEAN CORPUSCULAR HGB CONC 34.8 g/dL (33.0-35.0); MEAN CORPUSCULAR VOLUME 89.6 fL (80.0-100.0); MEAN PLATELET VOLUME 9.2 fL (7.4-11.0); MONOCYTES # (AUTO) 0.7 x10^3/uL (0.3-0.8); MONOCYTES % (AUTO) 6.7 % (0.0-13.0); NEUTROPHILS # (AUTO) 6.7 x10^3/uL (2.2-4.8); NEUTROPHILS % (AUTO) 65.6 % (42.0-75.0); PLATELET COUNT 142 X10^3/uL (150.0-450.0); RED BLOOD COUNT 3.28 X10^6/uL (3.5-5.4); RED CELL DISTRIBUTION WIDTH 14.1 % (11.6-16.5); WHITE BLOOD COUNT 10.1 X10^3/uL (3.6-10.0)
[2018-09-20] MEDS ORDERED: POTASSIUM CHL 60 MEQ/NS 0.45% 500 ML IV PRN (06:03)
[2018-09-20] MEDS ORDERED: MICRO K EXTEN CAP 10 MEQ PO PRN (06:03)
[2018-09-20] MEDS ORDERED: POTASSIUM CHL 40 MEQ/NS 0.45% 500 ML IV PRN (06:03)
[2018-09-20] MEDS ORDERED: K-RIDER 10 MEQ/NS 100 ML 10 MEQ/100 ML BAG IV PRN (06:03)
[2018-09-20] MEDS ORDERED: POTASSIUM CHLORIDE LIQ 20 MEQ UDC PO PRN (06:03)
[2018-09-20] MEDS ORDERED: KLOR-CON PO PRN (06:03)
[2018-09-20] MEDS ORDERED: K-DUR TAB 20 MEQ PO PRN (06:03)
[2018-09-20] MEDS ORDERED: MAGNESIUM SULFATE 1 GRAM/100 mL PREMIX 1 GM/100 ML BAG IV PRN (07:23)
[2018-09-20] MEDS: XOPENEX 1.25 MG/3 ML NEBULE NEB SCH (08:32)
[2018-09-20] MEDS: COREG TAB 3.125 MG PO SCH (08:53)
[2018-09-20] MEDS: LEVAQUIN PREMIX IV 500 MG 500 MG/100 ML BAG IV SCH (08:53)
[2018-09-20] MEDS: SYNTHROID 112 mcg TAB PO SCH (08:54)
[2018-09-20] MEDS: PROTONIX INJ 40 MG VIAL IVP SCH (08:55)
[2018-09-20 12:19] VITALS: BP 139/61
== END 2018-09-20 15:30 | disposition home or self-care (01) | DRG 203 ==
LOC: MED/SURG 09:57 → ER 09:57 → MED/SURG 15:29
PROVIDERS: ADMIT Internal Medicine; ATTEND Internal Medicine
DX: B96.89 Other specified bacterial agents as the cause of diseases classified elsewhere; R11.2 Nausea with vomiting, unspecified; E86.0 Dehydration; R51 Headache; I10 Essential (primary) hypertension; R19.7 Diarrhea, unspecified; Z23 Encounter for immunization; E11.65 Type 2 diabetes mellitus with hyperglycemia; R94.4 Abnormal results of kidney function studies; K52.89 Other specified noninfective gastroenteritis and colitis; J20.8 Acute bronchitis due to other specified organisms; R53.1 Weakness
CPT/HCPCS: 36415; 71020; 71046; 74022; 80048; 80053; 81003; 82150; 83605; 83690; 83735; 84132; 85025; 87070; 87077; 87186; 87205; 87502; 94640; 94669; 94760; 96365; 96374; 99218; 99283; 99284; A4222; C9113; 90670; G0378; J1815; J1956; J2550; J2920; J3475; J3490; J7030

== ENCOUNTER 2018-11-29 12:00 | Inpatient (IN) ==
[2018-11-29] MEDS ORDERED: TUSSIONEX PENNKINETIC SUSP PO PRN (13:26)
[2018-11-29] MEDS ORDERED: ZOFRAN INJ 4 MG VIAL IVP PRN (13:27)
--- NOTE | 2018-11-29 13:31 | DR.H&P ---
H&P - History & Physical for Day of: H&P Date: 11/29/18 - Chief Complaint Chief Complaint: sob, ccc, fever, wheezing - History of Present Illness History of Present Illness: 78 WF DIRECT ADMIT FROM DR VIDES OFFICE WITH CO VERY WEAK, SOB, CCC WITH WHEEZING FOR 1-2 WEEKS. PT HAS IN [facility] BEFORE WITH PNEUMONIA, PT STATES SHE HAS NOT STOPPPED COUGHING SINCE THEN. BECAME VERY WEAK OVER THE PAST WEEK, HAS TAKEN ROUND OF PO LEVAQUIN, CEFDINIR AND HAS HAD 2 OUTPT ROCEPHIN INJECTIONS ON 11/26 AND 11/27. PT HAS PMH OF DM, HTN, CAD, OA, GERD. PT ADMITTED FOR TREATMENT OF BRONCHOPNEUMONIA, WEAKNESS. - Past Medical History Past Medical History: Arthritis, Coronary Artery Disease, Diabetes, GERD, Hypertension, CO - Past Surgical History Surgical History: Cholecystectomy, Hysterectomy - Family History Family Medical History: Diabetes Mellitus, Heart Failure, Hypertension - Social History Does patient currently use any type of tobacco product: No Have you used tobacco products in the last 12 months: No Type of Tobacco Use: None Does any household member use tobacco: No Alcohol Use: None Drug Use: None - Medications Home Medications: Penicillins Allergy (Verified 09/15/18 16:24) - Review of Systems Constitutional: Fever, Chills, Weakness, Malaise Eyes: No Symptoms Reported ENT: Nose Congestion, Throat Pain Respiratory: Cough, Shortness of Breath, SOB with Excertion, Sputum, Wheezing Cardiovascular: No Symptoms Reported Gastrointestinal: Nausea Genitourinary: No Symptoms Reported Musculoskeletal: Back Pain Skin: No Symptoms Reported Neurological: Weakness - Physical Exam Vital Signs: Blood Pressure [Right Arm] 162/69 Blood Pressure [Left Arm] 139/61 Blood Pressure 139/61 Oriented: Normal Eyes: Normal Ear: Normal Nose: Discharge Throat: Dry Respiratory: Rhonchi Throughout, Wheezes Throughout, RLL Diminished, LLL Diminished Cardiovascular: Normal. negative: Edema : Normal Auscultation: Bowel Sounds: Normal Palpation: Normal Tenderness: Normal Skin: Decreased Turgur Musculoskeletal: Back:Lumbar Psychiatric: Anxiety Affect: Anxious Speech Pattern: Clear, Appropriate - Assessment/Plan (1) Bronchopneumonia Status: Acute Plan: ADMIT, PNEUMONIA PROTOCOL. IV SOLU MEDROL, SUPPLEMENTAL O2, RESP THERAPY. IV LEVAQUIN AND ROCEPHIN. EKG ON ADMISSION, CXR ON ADMISSION, ABG ON ADMISSION. VERIFY HOME MEDICATION, SSI WITH FSBS AC&HS. BP MONITORING, I&OS BLOOD AND SPUTUM CULTURE ON ADMISSION (2) Fever Status: Acute (3) SOB (shortness of breath) Status: Acute (4) Hypertension Status: Acute (5) Diabetes Status: Acute (6) CAD (coronary artery disease) Status: Acute - Allergies Allergies/Adverse Reactions: Allergies Allergy/AdvReac Type Severity Reaction Status Date / Time Penicillins Allergy Verified 09/15/18 16:24
--- NOTE | 2018-11-29 14:06 | RAD ---
History: Pneumonia Study: PA and lateral chest Comparison: September 17, 2018 Findings: The lungs are clear and the heart and mediastinum are unremarkable. There are minimally increased diffuse interstitial lung markings. There is no lung consolidation or atelectasis or effusion. There are cholecystectomy clips. Impression: No evidence for acute or active cardiopulmonary disease Reported By:
[2018-11-29 14:15] LABS: BASOPHILS # (AUTO) 0.1 X10^3/uL (0.0-0.1); BASOPHILS % (AUTO) 0.7 % (0.2-1.0); EOSINOPHILS # (AUTO) 0.2 x10^3/uL (0.0-0.2); EOSINOPHILS % (AUTO) 2.6 % (0.9-2.9); HEMATOCRIT 37.5 % (36.0-47.0); HEMOGLOBIN 12.5 g/dL (12.0-16.0); LYMPHOCYTES # (AUTO) 1.9 X10^3/uL (1.3-2.9); LYMPHOCYTES % (AUTO) 24.7 % (21.0-51.0); MEAN CORPUSCULAR HEMOGLOBIN 29.9 pg (27.0-34.0); MEAN CORPUSCULAR HGB CONC 33.4 g/dL (33.0-35.0); MEAN CORPUSCULAR VOLUME 89.6 fL (80.0-100.0); MEAN PLATELET VOLUME 9.2 fL (7.4-11.0); MONOCYTES # (AUTO) 0.6 x10^3/uL (0.3-0.8); MONOCYTES % (AUTO) 7.5 % (0.0-13.0); NEUTROPHILS # (AUTO) 4.9 x10^3/uL (2.2-4.8); NEUTROPHILS % (AUTO) 64.5 % (42.0-75.0); PLATELET COUNT 231 X10^3/uL (150.0-450.0); RED BLOOD COUNT 4.19 X10^6/uL (3.5-5.4); RED CELL DISTRIBUTION WIDTH 13.6 % (11.6-16.5); WHITE BLOOD COUNT 7.6 X10^3/uL (3.6-10.0)
[2018-11-29 14:24] LABS: ALANINE AMINOTRANSFERASE 21 Units/L (12-78); ALBUMIN 3.6 g/dL (3.4-5.0); ALKALINE PHOSPHATASE 86 Units/L (46-116); ASPARTATE AMINO TRANSFERASE 19 Units/L (15-37); BLOOD UREA NITROGEN 22 mg/dL (7-18); CALCIUM 9.7 mg/dL (8.5-10.1); CARBON DIOXIDE 26.3 mmol/L (21-32); CHLORIDE 100 mmol/L (98-107); CREATININE 1.35 mg/dL (0.55-1.02); SODIUM 137 mmol/L (136-145); TOTAL PROTEIN 7.8 g/dL (6.4-8.2); eGFR NON BLACK RACES 40 (>60)
[2018-11-29] MEDS ORDERED: NS 1/2 1000 ML IV 1,000 ML IV ONE (15:14)
[2018-11-29] MEDS: NS 1/2 1000 ML IV 1,000 ML IV SCH (15:15)
[2018-11-29] MEDS: SOLU-Medrol 40 MG VIAL IVP SCH ×2 (15:15→21:12)
[2018-11-29] MEDS: ROBITUSSIN DM PO SCH ×3 (15:16→21:12)
[2018-11-29 15:41] VITALS: BMI 27.7
[2018-11-29 16:11] LABS: ABG BASE EXCESS 2.4 mmol/L (-2.0-2.0); ABG HCO3 26.4 mmol/L (22-26)
[2018-11-29] MEDS: PULMICORT NEB TX 0.5 MG NEB SCH (20:58)
[2018-11-29] MEDS: DUONEB 0.5 MG/3 MG NEB SCH (20:58)
[2018-11-29] MEDS: BROVANA IN SCH (20:59)
[2018-11-29] MEDS ORDERED: PULMICORT NEB TX 0.5 MG NEB SCH (21:00)
[2018-11-29] MEDS: SNACK - Diabetic Appropriate PO SCH (21:12)
[2018-11-29] MEDS: HumuLIN R SUBCUT PRN (21:35)
[2018-11-30] MEDS: SOLU-Medrol 40 MG VIAL IVP SCH (05:16)
[2018-11-30] MEDS: NS 1/2 1000 ML IV 1,000 ML IV SCH ×3 (05:16→18:22)
[2018-11-30 05:26] LABS: BASOPHILS % (AUTO) 0.5 % (0.2-1.0); HEMATOCRIT 31.9 % (36.0-47.0); HEMOGLOBIN 10.6 g/dL (12.0-16.0); LYMPHOCYTES % (AUTO) 12.8 % (21.0-51.0); MEAN CORPUSCULAR HEMOGLOBIN 29.8 pg (27.0-34.0); MEAN CORPUSCULAR HGB CONC 33.2 g/dL (33.0-35.0); MEAN CORPUSCULAR VOLUME 89.8 fL (80.0-100.0); MEAN PLATELET VOLUME 9.8 fL (7.4-11.0); MONOCYTES # (AUTO) 0.1 x10^3/uL (0.3-0.8); NEUTROPHILS # (AUTO) 6.5 x10^3/uL (2.2-4.8); NEUTROPHILS % (AUTO) 85.7 % (42.0-75.0); PLATELET COUNT 188 X10^3/uL (150.0-450.0); RED BLOOD COUNT 3.55 X10^6/uL (3.5-5.4); RED CELL DISTRIBUTION WIDTH 14.1 % (11.6-16.5); WHITE BLOOD COUNT 7.6 X10^3/uL (3.6-10.0)
[2018-11-30 05:36] LABS: ALBUMIN 2.7 g/dL (3.4-5.0); CALCIUM 8.8 mg/dL (8.5-10.1); CARBON DIOXIDE 23.7 mmol/L (21-32); COR CA(FOR HYPOALB) 9.8 mg/dL (8.5-10.1); CREATININE 1.26 mg/dL (0.55-1.02); TOTAL PROTEIN 6.2 g/dL (6.4-8.2)
[2018-11-30 06:02] LABS: BILIRUBIN,URINE NEGATIVE (NEGATIVE); BLOOD/HEMOGLOBIN,URINE NEGATIVE (NEGATIVE); GLUCOSE, URINE NEGATIVE (NEGATIVE); KETONES,URINE NEGATIVE (NEGATIVE); LEUKOCYTE ESTERASE ,URINE NEGATIVE (NEGATIVE); NITRITES,URINE NEGATIVE (NEGATIVE); PROTEIN,URINE 1+ (NEGATIVE); UROBILINOGEN,URINE NORMAL (NORMAL)
[2018-11-30 06:08] LABS: APPEARANCE,URINE CLEAR (CLEAR); COLOR,URINE YELLOW (YELLOW)
[2018-11-30 06:25] LABS: AMORPHOUS SEDIMENT,UR TRACE /HPF (NEGATIVE); BACTERIA,URINE NEGATIVE /HPF (NEGATIVE); MUCUS,URINE RARE /HPF (NEGATIVE); RBC,URINE NONE SEEN /HPF (NONE SEEN); SQUAMOUS EPITHELIAL CELL,UR RARE /HPF (NEGATIVE)
[2018-11-30] MEDS: BROVANA IN SCH ×2 (07:59→20:22)
[2018-11-30] MEDS: PULMICORT NEB TX 0.5 MG NEB SCH ×2 (07:59→20:22)
[2018-11-30] MEDS: DUONEB 0.5 MG/3 MG NEB SCH (07:59)
[2018-11-30] MEDS: LEVAQUIN PREMIX IV 500 MG 500 MG/100 ML BAG IV SCH (08:33)
[2018-11-30] MEDS: ROBITUSSIN DM PO SCH ×4 (08:33→21:19)
[2018-11-30] MEDS: ROCEPHIN VIAL 1 GRAM IVP SCH (08:33)
[2018-11-30] MEDS ORDERED: NS 1/2 1000 ML IV 1,000 ML IV ONE (08:39)
[2018-11-30] MEDS: HumuLIN R SUBCUT PRN ×3 (11:45→21:18)
[2018-11-30] MEDS: XOPENEX 1.25 MG/3 ML NEBULE NEB SCH ×3 (12:01→20:22)
--- NOTE | 2018-11-30 16:04 | PCM.PROG ---
Progress Note - Progress Note for Day of Date of Exam: 11/30/18 - Subjective Subjective: 78 WF ADMITTED ON 11/29 WITH BRONCHOPNEUMONIA, FAILED OUTPT THERAPY. PT IS CURRENTLY ON PNEUMONIA PROTOCOL WITH BLOOD AND SPUTUM CULTURES COLLECTED ON ADMISSION. PT STATES SPUTUM CULTURE WAS MORE SALIVA. PT CONTINUES TO HAVE DIFFUSE EXP WHEEZES AND RHONCHI WITH THICK YELLOW MUCOUS PRODUCTION. PT STATES SHE FEELS VERY WEAK. PT NA 134 THIS AM, BUN 23, CREAT 1.26. ADD MUCOMYST TO JET NEBS AND ENCOURAGE RESPIRATORY TOILETING. - Past Medical Family Social History Past Med/Fam/Surg Hx: No changes since H&P Allergies: Allergies Penicillins Allergy (Verified 09/15/18 16:24) - Review of Systems ROS: No change since H&P - Vital Signs and I&O's Vital Signs: Temperature 97.9 F Pulse Rate [Left Brachial] 81 Pulse Rate 72 Respiratory Rate 18 Blood Pressure [Right Arm] 162/69 Blood Pressure [Left Arm] 141/62 Blood Pressure 139/61 O2 Sat by Pulse Oximetry 96 Intake and Output: Intake & Output 11/28/18 11/29/18 11/30/18 12/01/18 11:59 11:59 11:59 11:59 Intake Total 1205 / 1205 500 / 500 Output Total 300 / 300 Balance 905 / 905 500 / 500 - Physical Exam Oriented: Normal Eyes: Normal Ear: Normal Nose: Discharge Throat: Dry Respiratory: Diminished, Wheezes, Rhonchi Cardiovascular: Normal. negative: Edema : Normal Auscultation: Bowel Sounds: Normal Tenderness: Normal Skin: Decreased Turgur Musculoskeletal: Back:Lumbar Psychiatric: Anxiety Affect: Anxious Speech Pattern: Clear, Appropriate - Laboratory and Diagnostics Result Diagrams: 11/30/18 04:43 11/30/18 04:43 Labs: 11/29/18 16:10 Sputum - Expectorated Sputum Sputum Culture - Preliminary 11/29/18 16:10 Sputum - Expectorated Sputum - Final Laboratory WBC 7.6 X10^3/uL (3.6-10.0) 11/30/18 04:43 RBC 3.55 X10^6/uL (3.5-5.4) 11/30/18 04:43 Hgb 10.6 g/dL (12.0-16.0) L 11/30/18 04:43 Hct 31.9 % (36.0-47.0) L 11/30/18 04:43 MCV 89.8 fL (80.0-100.0) 11/30/18 04:43 MCH 29.8 pg (27.0-34.0) 11/30/18 04:43 MCHC 33.2 g/dL (33.0-35.0) 11/30/18 04:43 RDW 14.1 % (11.6-16.5) 11/30/18 04:43 Plt Count 188 X10^3/uL (150.0-450.0) 11/30/18 04:43 MPV 9.8 fL (7.4-11.0) 11/30/18 04:43 Neut % (Auto) 85.7 % (42.0-75.0) H 11/30/18 04:43 Lymph % (Auto) 12.8 % (21.0-51.0) L 11/30/18 04:43 [place] % (Auto) 1.0 % (0.0-13.0) 11/30/18 04:43 Eos % (Auto) 0.0 % (0.9-2.9) L 11/30/18 04:43 Baso % (Auto) 0.5 % (0.2-1.0) 11/30/18 04:43 Neut # (Auto) 6.5 x10^3/uL (2.2-4.8) H 11/30/18 04:43 Lymph # (Auto) 1.0 X10^3/uL (1.3-2.9) L 11/30/18 04:43 [place] # (Auto) 0.1 x10^3/uL (0.3-0.8) L 11/30/18 04:43 Eos # (Auto) 0.0 x10^3/uL (0.0-0.2) 11/30/18 04:43 Baso # (Auto) 0.0 X10^3/uL (0.0-0.1) 11/30/18 04:43 Absolute Nucleated RBC 0.0 /100WBC 11/30/18 04:43 Sample Site R bra 11/29/18 16:06 ABG pH 7.450 (7.35-7.45) 11/29/18 16:06 ABG pCO2 38.0 mmHg (35.0-45.0) 11/29/18 16:06 ABG pO2 76.0 mmHg (80.0-100.0) L 11/29/18 16:06 ABG HCO3 26.4 mmol/L (22-26) H 11/29/18 16:06 ABG O2 Saturation 96.0 % (90-100) 11/29/18 16:06 ABG Base Excess 2.4 mmol/L (-2.0-2.0) H 11/29/18 16:06 Tre Test Na 11/29/18 16:06 A-a Gradient 26.0 mmHg 11/29/18 16:06 FiO2 21.0 11/29/18 16:06 Blood Gas Comments [facility] well [facility] 11/29/18 16:06 Sodium 134 mmol/L (136-145) L 11/30/18 04:43 Corrected Sodium 136 mmol/L (136-145) 11/30/18 04:43 Potassium 5.2 mmol/L (3.5-5.1) H 11/30/18 04:43 Chloride 101 mmol/L (98-107) 11/30/18 04:43 Carbon Dioxide 23.7 mmol/L (21-32) 11/30/18 04:43 BUN 23 mg/dL (7-18) H 11/30/18 04:43 Creatinine 1.26 mg/dL (0.55-1.02) H 11/30/18 04:43 Est GFR (MDRD) Af Amer 53 (>60) L 11/30/18 04:43 Est GFR (MDRD) Non-Af 44 (>60) L 11/30/18 04:43 Glucose 177 mg/dL (65-99) H 11/30/18 04:43 POC Glucose (mg/dL) 263 mg/dL (65-99) H 11/30/18 11:23 Calcium 8.8 mg/dL (8.5-10.1) 11/30/18 04:43 Corrected Calcium 9.8 mg/dL (8.5-10.1) 11/30/18 04:43 Total Bilirubin 0.20 mg/dL (0.2-1.0) 11/30/18 04:43 AST 14 Units/L (15-37) L 11/30/18 04:43 ALT 18 Units/L (12-78) 11/30/18 04:43 Alkaline Phosphatase 69 Units/L (46-116) 11/30/18 04:43 Total Protein 6.2 g/dL (6.4-8.2) L 11/30/18 04:43 Albumin 2.7 g/dL (3.4-5.0) L 11/30/18 04:43 Globulin 3.5 g/dL (2.5-4.5) 11/30/18 04:43 Albumin/Globulin Ratio 0.8 Ratio (1.1-2.1) L 11/30/18 04:43 Specimen Type Clean catch urine 11/30/18 05:15 Urine Color Yellow (YELLOW) 11/30/18 05:15 Urine Appearance Clear (CLEAR) 11/30/18 05:15 Urine pH 6.0 (5.0 - 8.0) 11/30/18 05:15 Ur Specific [place] 1.010 (1.000-1.030) 11/30/18 05:15 Urine Protein 1+ (NEGATIVE) 11/30/18 05:15 Urine Glucose (UA) Negative (NEGATIVE) 11/30/18 05:15 Urine Ketones Negative (NEGATIVE) 11/30/18 05:15 Urine Occult Blood Negative (NEGATIVE) 11/30/18 05:15 Urine Nitrite Negative (NEGATIVE) 11/30/18 05:15 Urine Bilirubin Negative (NEGATIVE) 11/30/18 05:15 Urine Urobilinogen Normal (NORMAL) 11/30/18 05:15 Ur Leukocyte Esterase Negative (NEGATIVE) 11/30/18 05:15 Urine RBC None seen /HPF (NONE SEEN) 11/30/18 05:15 Urine WBC None seen /HPF (NONE SEEN) 11/30/18 05:15 Ur Squamous Epith Cells Rare /HPF (NEGATIVE) 11/30/18 05:15 Amorphous Sediment Trace /HPF (NEGATIVE) 11/30/18 05:15 Urine Bacteria Negative /HPF (NEGATIVE) 11/30/18 05:15 Urine Mucus Rare /HPF (NEGATIVE) 11/30/18 05:15 Ur Culture Indicated? No/not indicated 11/30/18 05:15 Influenza Type A (PCR) Negative (NEGATIVE) 11/29/18 15:20 Influenza Type B (PCR) Negative (NEGATIVE) 11/29/18 15:20 - Plan (1) Bronchopneumonia Status: Acute Plan: CONTINUE PNEUMONIA PROTOCOL. IV SOLU MEDROL, SUPPLEMENTAL O2, RESP THERAPY. IV LEVAQUIN AND ROCEPHIN. EKG ON ADMISSION, CXR Q AM, ABG ON ADMISSION. CONTINUE HOME BP MEDICATION, SSI WITH FSBS AC&HS. BP MONITORING, I&OS BLOOD AND SPUTUM CULTURE ON ADMISSION (2) Fever Status: Acute (3) SOB (shortness of breath) Status: Acute Plan: REPEAT ABG ON MONDAY, 12/01 (4) Hypertension Status: Acute (5) Diabetes Status: Acute (6) CAD (coronary artery disease) Status: Acute Plan: BB, BP CONTROL. SUPPLEMENTAL O2. LOVENOX PROPHALAXIS
[2018-11-30] MEDS: MUCOMYST 20% 200 MG/ML NEB SCH ×2 (16:16→20:22)
[2018-11-30] MEDS: COREG TAB 3.125 MG PO SCH ×2 (17:47→21:17)
[2018-11-30] MEDS ORDERED: MAALOX or MYLANTA PO PRN (19:17)
[2018-11-30] MEDS: PROTONIX TAB 40 MG PO SCH (21:17)
[2018-11-30] MEDS: SNACK - Diabetic Appropriate PO SCH (21:17)
[2018-11-30] MEDS: LOVENOX INJ 30 MG SYR SC SCH (21:18)
[2018-12-01 05:25] LABS: BASOPHILS # (AUTO) 0.1 X10^3/uL (0.0-0.1); BASOPHILS % (AUTO) 0.8 % (0.2-1.0); EOSINOPHILS % (AUTO) 0.2 % (0.9-2.9); HEMATOCRIT 29.3 % (36.0-47.0); LYMPHOCYTES # (AUTO) 2.4 X10^3/uL (1.3-2.9); LYMPHOCYTES % (AUTO) 24.6 % (21.0-51.0); MEAN CORPUSCULAR HEMOGLOBIN 30.6 pg (27.0-34.0); MEAN CORPUSCULAR HGB CONC 34.2 g/dL (33.0-35.0); MEAN CORPUSCULAR VOLUME 89.3 fL (80.0-100.0); MEAN PLATELET VOLUME 9.6 fL (7.4-11.0); MONOCYTES # (AUTO) 0.6 x10^3/uL (0.3-0.8); MONOCYTES % (AUTO) 5.9 % (0.0-13.0); NEUTROPHILS # (AUTO) 6.6 x10^3/uL (2.2-4.8); NEUTROPHILS % (AUTO) 68.5 % (42.0-75.0); PLATELET COUNT 150 X10^3/uL (150.0-450.0); RED BLOOD COUNT 3.28 X10^6/uL (3.5-5.4); RED CELL DISTRIBUTION WIDTH 13.6 % (11.6-16.5); WHITE BLOOD COUNT 9.7 X10^3/uL (3.6-10.0)
[2018-12-01 05:39] LABS: ALANINE AMINOTRANSFERASE 16 Units/L (12-78); ALBUMIN 2.6 g/dL (3.4-5.0); ALKALINE PHOSPHATASE 59 Units/L (46-116); ASPARTATE AMINO TRANSFERASE 20 Units/L (15-37); BLOOD UREA NITROGEN 29 mg/dL (7-18); CALCIUM 8.7 mg/dL (8.5-10.1); CARBON DIOXIDE 21.6 mmol/L (21-32); CHLORIDE 105 mmol/L (98-107); COR CA(FOR HYPOALB) 9.8 mg/dL (8.5-10.1); CREATININE 1.19 mg/dL (0.55-1.02); SODIUM 136 mmol/L (136-145); TOTAL PROTEIN 5.7 g/dL (6.4-8.2); eGFR NON BLACK RACES 47 (>60)
[2018-12-01] MEDS: LOVENOX INJ 30 MG SYR SC SCH ×2 (06:39→08:38)
[2018-12-01] MEDS ORDERED: NS 1/2 1000 ML IV 1,000 ML IV ONE (08:06)
[2018-12-01] MEDS ORDERED: ZESTRIL TAB 20 MG ONE (08:07)
[2018-12-01] MEDS: NS 1/2 1000 ML IV 1,000 ML IV SCH (08:32)
[2018-12-01] MEDS: ROCEPHIN VIAL 1 GRAM IVP SCH (08:33)
[2018-12-01] MEDS: LEVAQUIN PREMIX IV 500 MG 500 MG/100 ML BAG IV SCH (08:33)
[2018-12-01] MEDS: ROBITUSSIN DM PO SCH ×4 (08:33→20:45)
[2018-12-01] MEDS: COREG TAB 3.125 MG PO SCH ×2 (08:37→20:44)
[2018-12-01] MEDS: ZESTRIL TAB 20 MG PO SCH (08:37)
[2018-12-01] MEDS: PROTONIX TAB 40 MG PO SCH (08:37)
[2018-12-01] MEDS: SYNTHROID 112 mcg TAB PO SCH (08:37)
[2018-12-01] MEDS: PULMICORT NEB TX 0.5 MG NEB SCH ×2 (09:12→21:30)
[2018-12-01] MEDS: BROVANA IN SCH ×2 (09:12→21:30)
[2018-12-01] MEDS: XOPENEX 1.25 MG/3 ML NEBULE NEB SCH ×4 (09:12→21:30)
[2018-12-01] MEDS: MUCOMYST 20% 200 MG/ML NEB SCH ×4 (09:12→21:30)
--- NOTE | 2018-12-01 20:21 | PCM.PROG ---
Progress Note - Progress Note for Day of Date of Exam: 12/01/18 - Subjective Subjective: IS A 78 WF PATIENT OF . SHE WAS ADMITTED ON 11/29 WITH BRONCHOPNEUMONIA, FAILED OUTPT THERAPY. PT IS CURRENTLY ON PNEUMONIA PROTOCOL WITH BLOOD AND SPUTUM CULTURES COLLECTED ON ADMISSION. SHE CONTINUES WITH PRODUCTIVE COUGH AND SHORTNESS OF BREATH TODAY. PT CONTINUES TO HAVE DIFFUSE EXPWHEEZES AND RHONCHI WITH THICK YELLOW MUCOUS PRODUCTION. AM VITALS WERE 98.3-64-18-95%-125/58. ABNORMAL LAB VALUES INCLUDE THE FOLLOWING: RBC 3.28, HGB 10.0, HCT 29.3, BUN 29, CREATININE 1.19, TOTAL PROTEIN 5.7, ALBUMIN 2.6. SPUTUM AND BLOOD CULTURES PENDING. SHE IS CURRENTLY RECEIVING IV ANTIBIOTICS, RESPIRATORY TREATMENTS, AND SUPPLEMENTAL OXYGEN. WE WILL CONTINUE WITH CURRENT PLAN OF CARE TODAY. WE PLAN TO FOLLOW UP WITH AM LABS AND CONTINUE TO MONITOR. - Past Medical Family Social History Past Med/Fam/Surg Hx: No changes since H&P Allergies: Allergies Penicillins Allergy (Verified 09/15/18 16:24) - Review of Systems ROS: No change since H&P - Vital Signs and I&O's Vital Signs: Temperature 98.5 F Pulse Rate [Left Brachial] 64 Pulse Rate 58 Respiratory Rate 18 Blood Pressure [Right Arm] 120/58 Blood Pressure [Left Arm] 141/62 Blood Pressure 139/61 O2 Sat by Pulse Oximetry 90 Intake and Output: Intake & Output 11/29/18 11/30/18 12/01/18 12/02/18 11:59 11:59 11:59 11:59 Intake Total 1205 / 1205 2710 / 2710 990 / 990 Output Total 300 / 300 Balance 905 / 905 2710 / 2710 990 / 990 - Physical Exam Oriented: Normal Eyes: Normal Ear: Normal Nose: Discharge Throat: Dry Respiratory: Diminished, Wheezes, Rhonchi Cardiovascular: Normal. negative: Edema : Normal Auscultation: Bowel Sounds: Normal Tenderness: Normal Skin: Decreased Turgur Musculoskeletal: Back:Lumbar Psychiatric: Anxiety Affect: Anxious Speech Pattern: Clear, Appropriate - Laboratory and Diagnostics Result Diagrams: 12/01/18 04:49 12/01/18 04:49 Labs: 11/29/18 14:04 Blood Blood Culture - Preliminary 11/29/18 14:04 Blood Blood Culture - Preliminary 11/30/18 16:30 Sputum - Expectorated Sputum Sputum Culture - Preliminary 11/30/18 16:30 Sputum - Expectorated Sputum - Final 11/29/18 16:10 Sputum - Expectorated Sputum Sputum Culture - Final 11/29/18 16:10 Sputum - Expectorated Sputum - Final Laboratory WBC 9.7 X10^3/uL (3.6-10.0) 12/01/18 04:49 RBC 3.28 X10^6/uL (3.5-5.4) L 12/01/18 04:49 Hgb 10.0 g/dL (12.0-16.0) L 12/01/18 04:49 Hct 29.3 % (36.0-47.0) L 12/01/18 04:49 MCV 89.3 fL (80.0-100.0) 12/01/18 04:49 MCH 30.6 pg (27.0-34.0) 12/01/18 04:49 MCHC 34.2 g/dL (33.0-35.0) 12/01/18 04:49 RDW 13.6 % (11.6-16.5) 12/01/18 04:49 Plt Count 150 X10^3/uL (150.0-450.0) 12/01/18 04:49 MPV 9.6 fL (7.4-11.0) 12/01/18 04:49 Neut % (Auto) 68.5 % (42.0-75.0) 12/01/18 04:49 Lymph % (Auto) 24.6 % (21.0-51.0) 12/01/18 04:49 [place] % (Auto) 5.9 % (0.0-13.0) 12/01/18 04:49 Eos % (Auto) 0.2 % (0.9-2.9) L 12/01/18 04:49 Baso % (Auto) 0.8 % (0.2-1.0) 12/01/18 04:49 Neut # (Auto) 6.6 x10^3/uL (2.2-4.8) H 12/01/18 04:49 Lymph # (Auto) 2.4 X10^3/uL (1.3-2.9) 12/01/18 04:49 [place] # (Auto) 0.6 x10^3/uL (0.3-0.8) 12/01/18 04:49 Eos # (Auto) 0.0 x10^3/uL (0.0-0.2) 12/01/18 04:49 Baso # (Auto) 0.1 X10^3/uL (0.0-0.1) 12/01/18 04:49 Absolute Nucleated RBC 0.1 /100WBC 12/01/18 04:49 Sample Site R bra 11/29/18 16:06 ABG pH 7.450 (7.35-7.45) 11/29/18 16:06 ABG pCO2 38.0 mmHg (35.0-45.0) 11/29/18 16:06 ABG pO2 76.0 mmHg (80.0-100.0) L 11/29/18 16:06 ABG HCO3 26.4 mmol/L (22-26) H 11/29/18 16:06 ABG O2 Saturation 96.0 % (90-100) 11/29/18 16:06 ABG Base Excess 2.4 mmol/L (-2.0-2.0) H 11/29/18 16:06 Tre Test Na 11/29/18 16:06 A-a Gradient 26.0 mmHg 11/29/18 16:06 FiO2 21.0 11/29/18 16:06 Blood Gas Comments [facility] well g[facility] 11/29/18 16:06 Sodium 136 mmol/L (136-145) 12/01/18 04:49 Corrected Sodium TNP 12/01/18 04:49 Potassium 4.5 mmol/L (3.5-5.1) 12/01/18 04:49 Chloride 105 mmol/L (98-107) 12/01/18 04:49 Carbon Dioxide 21.6 mmol/L (21-32) 12/01/18 04:49 BUN 29 mg/dL (7-18) H 12/01/18 04:49 Creatinine 1.19 mg/dL (0.55-1.02) H 12/01/18 04:49 Est GFR (MDRD) Af Amer 56 (>60) L 12/01/18 04:49 Est GFR (MDRD) Non-Af 47 (>60) L 12/01/18 04:49 Glucose 90 mg/dL (65-99) 12/01/18 04:49 POC Glucose (mg/dL) 164 mg/dL (65-99) H 12/01/18 20:07 Calcium 8.7 mg/dL (8.5-10.1) 12/01/18 04:49 Corrected Calcium 9.8 mg/dL (8.5-10.1) 12/01/18 04:49 Total Bilirubin 0.20 mg/dL (0.2-1.0) 12/01/18 04:49 AST 20 Units/L (15-37) 12/01/18 04:49 ALT 16 Units/L (12-78) 12/01/18 04:49 Alkaline Phosphatase 59 Units/L (46-116) 12/01/18 04:49 Total Protein 5.7 g/dL (6.4-8.2) L 12/01/18 04:49 Albumin 2.6 g/dL (3.4-5.0) L 12/01/18 04:49 Globulin 3.1 g/dL (2.5-4.5) 12/01/18 04:49 Albumin/Globulin Ratio 0.8 Ratio (1.1-2.1) L 12/01/18 04:49 Specimen Type Clean catch urine 11/30/18 05:15 Urine Color Yellow (YELLOW) 11/30/18 05:15 Urine Appearance Clear (CLEAR) 11/30/18 05:15 Urine pH 6.0 (5.0 - 8.0) 11/30/18 05:15 Ur Specific [place] 1.010 (1.000-1.030) 11/30/18 05:15 Urine Protein 1+ (NEGATIVE) 11/30/18 05:15 Urine Glucose (UA) Negative (NEGATIVE) 11/30/18 05:15 Urine Ketones Negative (NEGATIVE) 11/30/18 05:15 Urine Occult Blood Negative (NEGATIVE) 11/30/18 05:15 Urine Nitrite Negative (NEGATIVE) 11/30/18 05:15 Urine Bilirubin Negative (NEGATIVE) 11/30/18 05:15 Urine Urobilinogen Normal (NORMAL) 11/30/18 05:15 Ur Leukocyte Esterase Negative (NEGATIVE) 11/30/18 05:15 Urine RBC None seen /HPF (NONE SEEN) 11/30/18 05:15 Urine WBC None seen /HPF (NONE SEEN) 11/30/18 05:15 Ur Squamous Epith Cells Rare /HPF (NEGATIVE) 11/30/18 05:15 Amorphous Sediment Trace /HPF (NEGATIVE) 11/30/18 05:15 Urine Bacteria Negative /HPF (NEGATIVE) 11/30/18 05:15 Urine Mucus Rare /HPF (NEGATIVE) 11/30/18 05:15 Ur Culture Indicated? No/not indicated 11/30/18 05:15 Influenza Type A (PCR) Negative (NEGATIVE) 11/29/18 15:20 Influenza Type B (PCR) Negative (NEGATIVE) 11/29/18 15:20
[2018-12-01] MEDS: SNACK - Diabetic Appropriate PO SCH (20:44)
[2018-12-02] MEDS ORDERED: NS 1/2 1000 ML IV 1,000 ML IV ONE (02:09)
[2018-12-02] MEDS: NS 1/2 1000 ML IV 1,000 ML IV SCH ×2 (02:12→12:32)
[2018-12-02 05:55] LABS: BASOPHILS # (AUTO) 0.1 X10^3/uL (0.0-0.1); BASOPHILS % (AUTO) 0.8 % (0.2-1.0); EOSINOPHILS # (AUTO) 0.1 x10^3/uL (0.0-0.2); EOSINOPHILS % (AUTO) 1.8 % (0.9-2.9); HEMATOCRIT 33.3 % (36.0-47.0); LYMPHOCYTES # (AUTO) 2.6 X10^3/uL (1.3-2.9); MEAN CORPUSCULAR HEMOGLOBIN 29.5 pg (27.0-34.0); MEAN CORPUSCULAR HGB CONC 33.1 g/dL (33.0-35.0); MEAN CORPUSCULAR VOLUME 89.2 fL (80.0-100.0); MONOCYTES # (AUTO) 0.6 x10^3/uL (0.3-0.8); MONOCYTES % (AUTO) 7.5 % (0.0-13.0); NEUTROPHILS # (AUTO) 4.4 x10^3/uL (2.2-4.8); NEUTROPHILS % (AUTO) 56.9 % (42.0-75.0); PLATELET COUNT 187 X10^3/uL (150.0-450.0); RED BLOOD COUNT 3.73 X10^6/uL (3.5-5.4); WHITE BLOOD COUNT 7.8 X10^3/uL (3.6-10.0)
[2018-12-02 06:09] LABS: ALANINE AMINOTRANSFERASE 18 Units/L (12-78); ALBUMIN 2.9 g/dL (3.4-5.0); ALKALINE PHOSPHATASE 64 Units/L (46-116); ASPARTATE AMINO TRANSFERASE 15 Units/L (15-37); BLOOD UREA NITROGEN 28 mg/dL (7-18); CALCIUM 8.9 mg/dL (8.5-10.1); CARBON DIOXIDE 26.8 mmol/L (21-32); CHLORIDE 105 mmol/L (98-107); COR CA(FOR HYPOALB) 9.8 mg/dL (8.5-10.1); CREATININE 1.35 mg/dL (0.55-1.02); SODIUM 138 mmol/L (136-145); TOTAL PROTEIN 6.1 g/dL (6.4-8.2); eGFR NON BLACK RACES 40 (>60)
[2018-12-02] MEDS ORDERED: ZESTRIL TAB 20 MG ONE (07:18)
--- NOTE | 2018-12-02 08:22 | RAD ---
HISTORY: Shortness of breath Study: Single-view chest, done portably Comparison: 11/29/2018. Findings: Trachea is midline. Heart size is upper normal. Stable increased interstitial markings are present bilaterally without infiltrate, CHF, pleural fluid or pneumothorax. Osseous structures are intact. IMPRESSION: No acute cardiopulmonary disease. Reported By:
[2018-12-02] MEDS: PROTONIX TAB 40 MG PO SCH (08:28)
[2018-12-02] MEDS: ZESTRIL TAB 20 MG PO SCH (08:28)
[2018-12-02] MEDS: SYNTHROID 112 mcg TAB PO SCH (08:28)
[2018-12-02] MEDS: ROBITUSSIN DM PO SCH ×4 (08:28→20:40)
[2018-12-02] MEDS: COREG TAB 3.125 MG PO SCH ×2 (08:29→20:40)
[2018-12-02] MEDS: LEVAQUIN PREMIX IV 500 MG 500 MG/100 ML BAG IV SCH (08:32)
[2018-12-02] MEDS: LOVENOX INJ 30 MG SYR SC SCH (08:34)
[2018-12-02] MEDS: ROCEPHIN VIAL 1 GRAM IVP SCH (08:34)
[2018-12-02] MEDS: XOPENEX 1.25 MG/3 ML NEBULE NEB SCH ×4 (08:59→20:23)
[2018-12-02] MEDS: MUCOMYST 20% 200 MG/ML NEB SCH ×4 (08:59→20:23)
[2018-12-02] MEDS: PULMICORT NEB TX 0.5 MG NEB SCH ×2 (08:59→20:23)
[2018-12-02] MEDS: BROVANA IN SCH ×2 (08:59→20:23)
--- NOTE | 2018-12-02 20:00 | PCM.PROG ---
Progress Note - Progress Note for Day of Date of Exam: 12/02/18 - Subjective Subjective: IS A 78 WF PATIENT OF . SHE WAS ADMITTED ON 11/29 WITH BRONCHOPNEUMONIA, FAILED OUTPT THERAPY. PT IS CURRENTLY ON PNEUMONIA PROTOCOL WITH BLOOD AND SPUTUM CULTURES COLLECTED ON ADMISSION. SHE CONTINUES WITH PRODUCTIVE COUGH AND SHORTNESS OF BREATH TODAY. PT CONTINUES TO HAVE DIFFUSE EXPWHEEZES AND RHONCHI WITH THICK YELLOW MUCOUS PRODUCTION. AM VITALS WERE 97.7-62-18-98%-139/63. ABNORMAL LAB VALUES INCLUDE THE FOLLOWING: HGB 11.0, HCT 33.3, BUN 28, CREATININE 1.35, TOTAL PROTEIN 6.1, ALBUMIN 2.9. SPUTUM AND BLOOD CULTURES PENDING. CHEST XRAY OBTAINED AND REVEALED NO ACUTE CARDIOPULMONARY DISEASE. SHE IS CURRENTLY RECEIVING IV ANTIBIOTICS, RESPIRATORY TREATMENTS, AND SUPPLEMENTAL OXYGEN. WE WILL CONTINUE WITH CURRENT PLAN OF CARE TODAY. WE PLAN TO FOLLOW UP WITH AM LABS AND CONTINUE TO MONITOR. - Past Medical Family Social History Past Med/Fam/Surg Hx: No changes since H&P Allergies: Allergies Penicillins Allergy (Verified 09/15/18 16:24) - Review of Systems ROS: No change since H&P - Vital Signs and I&O's Vital Signs: Temperature 98.8 F Pulse Rate [Left Brachial] 55 Pulse Rate 71 Respiratory Rate 18 Blood Pressure [Right Arm] 115/55 Blood Pressure [Left Arm] 141/62 Blood Pressure 139/61 O2 Sat by Pulse Oximetry 97 Intake and Output: Intake & Output 11/30/18 12/01/18 12/02/18 12/03/18 11:59 11:59 11:59 11:59 Intake Total 1205 / 1205 2710 / 2710 2540 / 2540 2200 / 2200 Output Total 300 / 300 Balance 905 / 905 2710 / 2710 2540 / 2540 2200 / 2200 - Physical Exam Oriented: Normal Eyes: Normal Ear: Normal Nose: Discharge Throat: Dry Respiratory: Diminished, Wheezes, Rhonchi Cardiovascular: Normal. negative: Edema : Normal Auscultation: Bowel Sounds: Normal Palpation: Normal Tenderness: Normal Skin: Decreased Turgur Musculoskeletal: Back:Lumbar Psychiatric: Anxiety Affect: Anxious Speech Pattern: Clear, Appropriate - Laboratory and Diagnostics Result Diagrams: 12/02/18 05:25 12/02/18 05:25 Labs: 02/08/19 16:30 Sputum - Expectorated Sputum Sputum Culture - Final 11/30/18 16:30 Sputum - Expectorated Sputum - Final 11/29/18 14:04 Blood Blood Culture - Preliminary 11/29/18 14:04 Blood Blood Culture - Preliminary 11/29/18 16:10 Sputum - Expectorated Sputum Sputum Culture - Final 11/29/18 16:10 Sputum - Expectorated Sputum - Final Laboratory WBC 7.8 X10^3/uL (3.6-10.0) 12/02/18 05:25 RBC 3.73 X10^6/uL (3.5-5.4) 12/02/18 05:25 Hgb 11.0 g/dL (12.0-16.0) L 12/02/18 05:25 Hct 33.3 % (36.0-47.0) L 12/02/18 05:25 MCV 89.2 fL (80.0-100.0) 12/02/18 05:25 MCH 29.5 pg (27.0-34.0) 12/02/18 05:25 MCHC 33.1 g/dL (33.0-35.0) 12/02/18 05:25 RDW 14.0 % (11.6-16.5) 12/02/18 05:25 Plt Count 187 X10^3/uL (150.0-450.0) 12/02/18 05:25 MPV 9.0 fL (7.4-11.0) 12/02/18 05:25 Neut % (Auto) 56.9 % (42.0-75.0) 12/02/18 05:25 Lymph % (Auto) 33.0 % (21.0-51.0) 12/02/18 05:25 [place] % (Auto) 7.5 % (0.0-13.0) 12/02/18 05:25 Eos % (Auto) 1.8 % (0.9-2.9) 12/02/18 05:25 Baso % (Auto) 0.8 % (0.2-1.0) 12/02/18 05:25 Neut # (Auto) 4.4 x10^3/uL (2.2-4.8) 12/02/18 05:25 Lymph # (Auto) 2.6 X10^3/uL (1.3-2.9) 12/02/18 05:25 [place] # (Auto) 0.6 x10^3/uL (0.3-0.8) 12/02/18 05:25 Eos # (Auto) 0.1 x10^3/uL (0.0-0.2) 12/02/18 05:25 Baso # (Auto) 0.1 X10^3/uL (0.0-0.1) 12/02/18 05:25 Absolute Nucleated RBC 0.0 /100WBC 12/02/18 05:25 Sample Site R bra 11/29/18 16:06 ABG pH 7.450 (7.35-7.45) 11/29/18 16:06 ABG pCO2 38.0 mmHg (35.0-45.0) 11/29/18 16:06 ABG pO2 76.0 mmHg (80.0-100.0) L 11/29/18 16:06 ABG HCO3 26.4 mmol/L (22-26) H 11/29/18 16:06 ABG O2 Saturation 96.0 % (90-100) 11/29/18 16:06 ABG Base Excess 2.4 mmol/L (-2.0-2.0) H 11/29/18 16:06 Tre Test Na 11/29/18 16:06 A-a Gradient 26.0 mmHg 11/29/18 16:06 FiO2 21.0 11/29/18 16:06 Blood Gas Comments [facility] well gmb 11/29/18 16:06 Sodium 138 mmol/L (136-145) 12/02/18 05:25 Corrected Sodium TNP 12/02/18 05:25 Potassium 4.2 mmol/L (3.5-5.1) 12/02/18 05:25 Chloride 105 mmol/L (98-107) 12/02/18 05:25 Carbon Dioxide 26.8 mmol/L (21-32) 12/02/18 05:25 BUN 28 mg/dL (7-18) H 12/02/18 05:25 Creatinine 1.35 mg/dL (0.55-1.02) H 12/02/18 05:25 Est GFR (MDRD) Af Amer 49 (>60) L 12/02/18 05:25 Est GFR (MDRD) Non-Af 40 (>60) L 12/02/18 05:25 Glucose 81 mg/dL (65-99) 12/02/18 05:25 POC Glucose (mg/dL) 165 mg/dL (65-99) H 12/02/18 16:26 Calcium 8.9 mg/dL (8.5-10.1) 12/02/18 05:25 Corrected Calcium 9.8 mg/dL (8.5-10.1) 12/02/18 05:25 Total Bilirubin 0.20 mg/dL (0.2-1.0) 12/02/18 05:25 AST 15 Units/L (15-37) 12/02/18 05:25 ALT 18 Units/L (12-78) 12/02/18 05:25 Alkaline Phosphatase 64 Units/L (46-116) 12/02/18 05:25 Total Protein 6.1 g/dL (6.4-8.2) L 12/02/18 05:25 Albumin 2.9 g/dL (3.4-5.0) L 12/02/18 05:25 Globulin 3.2 g/dL (2.5-4.5) 12/02/18 05:25 Albumin/Globulin Ratio 0.9 Ratio (1.1-2.1) L 12/02/18 05:25 Specimen Type Clean catch urine 11/30/18 05:15 Urine Color Yellow (YELLOW) 11/30/18 05:15 Urine Appearance Clear (CLEAR) 11/30/18 05:15 Urine pH 6.0 (5.0 - 8.0) 11/30/18 05:15 Ur Specific [employer] 1.010 (1.000-1.030) 11/30/18 05:15 Urine Protein 1+ (NEGATIVE) 11/30/18 05:15 Urine Glucose (UA) Negative (NEGATIVE) 11/30/18 05:15 Urine Ketones Negative (NEGATIVE) 11/30/18 05:15 Urine Occult Blood Negative (NEGATIVE) 11/30/18 05:15 Urine Nitrite Negative (NEGATIVE) 11/30/18 05:15 Urine Bilirubin Negative (NEGATIVE) 11/30/18 05:15 Urine Urobilinogen Normal (NORMAL) 11/30/18 05:15 Ur Leukocyte Esterase Negative (NEGATIVE) 11/30/18 05:15 Urine RBC None seen /HPF (NONE SEEN) 11/30/18 05:15 Urine WBC None seen /HPF (NONE SEEN) 11/30/18 05:15 Ur Squamous Epith Cells Rare /HPF (NEGATIVE) 11/30/18 05:15 Amorphous Sediment Trace /HPF (NEGATIVE) 11/30/18 05:15 Urine Bacteria Negative /HPF (NEGATIVE) 11/30/18 05:15 Urine Mucus Rare /HPF (NEGATIVE) 11/30/18 05:15 Ur Culture Indicated? No/not indicated 11/30/18 05:15 Influenza Type A (PCR) Negative (NEGATIVE) 11/29/18 15:20 Influenza Type B (PCR) Negative (NEGATIVE) 11/29/18 15:20
[2018-12-02] MEDS: SNACK - Diabetic Appropriate PO SCH (20:40)
[2018-12-03] MEDS ORDERED: NS 1/2 1000 ML IV 1,000 ML IV ONE (01:28)
[2018-12-03] MEDS: NS 1/2 1000 ML IV 1,000 ML IV SCH (01:30)
--- NOTE | 2018-12-03 06:15 | RAD ---
HISTORY: 78-year-old female with shortness of breath Study: Frontal view of the chest. Comparison: Chest radiograph 12/02/2018 Findings: The trachea is midline. The cardiac silhouette is stable with continued prominence interstitium and perihilar lung markings and mild hyperexpansion of the lungs. The lungs are clear without focal consolidation, effusion or pneumothorax. Soft tissues are unremarkable. Osseous structures are unremarkable. IMPRESSION: 1. No acute cardiopulmonary disease with findings suggesting COPD. Reported By:
[2018-12-03 06:32] LABS: BASOPHILS # (AUTO) 0.1 X10^3/uL (0.0-0.1); BASOPHILS % (AUTO) 1.2 % (0.2-1.0); EOSINOPHILS # (AUTO) 0.3 x10^3/uL (0.0-0.2); EOSINOPHILS % (AUTO) 3.1 % (0.9-2.9); HEMATOCRIT 30.6 % (36.0-47.0); HEMOGLOBIN 10.2 g/dL (12.0-16.0); LYMPHOCYTES # (AUTO) 2.4 X10^3/uL (1.3-2.9); LYMPHOCYTES % (AUTO) 28.3 % (21.0-51.0); MEAN CORPUSCULAR HEMOGLOBIN 29.8 pg (27.0-34.0); MEAN CORPUSCULAR HGB CONC 33.4 g/dL (33.0-35.0); MEAN CORPUSCULAR VOLUME 89.3 fL (80.0-100.0); MEAN PLATELET VOLUME 9.9 fL (7.4-11.0); MONOCYTES # (AUTO) 0.7 x10^3/uL (0.3-0.8); MONOCYTES % (AUTO) 8.8 % (0.0-13.0); NEUTROPHILS # (AUTO) 4.9 x10^3/uL (2.2-4.8); NEUTROPHILS % (AUTO) 58.6 % (42.0-75.0); PLATELET COUNT 168 X10^3/uL (150.0-450.0); RED BLOOD COUNT 3.42 X10^6/uL (3.5-5.4); RED CELL DISTRIBUTION WIDTH 13.8 % (11.6-16.5); WHITE BLOOD COUNT 8.3 X10^3/uL (3.6-10.0)
[2018-12-03 06:35] LABS: ALANINE AMINOTRANSFERASE 9 Units/L (12-78); ALBUMIN 2.5 g/dL (3.4-5.0); ALKALINE PHOSPHATASE 59 Units/L (46-116); ASPARTATE AMINO TRANSFERASE 34 Units/L (15-37); BLOOD UREA NITROGEN 27 mg/dL (7-18); CALCIUM 8.3 mg/dL (8.5-10.1); CHLORIDE 106 mmol/L (98-107); COR CA(FOR HYPOALB) 9.5 mg/dL (8.5-10.1); CREATININE 1.24 mg/dL (0.55-1.02); SODIUM 137 mmol/L (136-145); TOTAL PROTEIN 5.6 g/dL (6.4-8.2); eGFR NON BLACK RACES 44 (>60)
[2018-12-03] MEDS: LEVAQUIN PREMIX IV 500 MG 500 MG/100 ML BAG IV SCH (08:47)
[2018-12-03] MEDS: LOVENOX INJ 30 MG SYR SC SCH (08:47)
[2018-12-03] MEDS: COREG TAB 3.125 MG PO SCH (08:48)
[2018-12-03] MEDS: ROBITUSSIN DM PO SCH ×3 (08:48→16:22)
[2018-12-03] MEDS: PROTONIX TAB 40 MG PO SCH (08:49)
[2018-12-03] MEDS ORDERED: ZESTRIL TAB 20 MG ONE (08:54)
[2018-12-03] MEDS: ZESTRIL TAB 20 MG PO SCH (08:56)
[2018-12-03] MEDS: SYNTHROID 112 mcg TAB PO SCH (08:56)
[2018-12-03] MEDS: ROCEPHIN VIAL 1 GRAM IVP SCH (08:56)
[2018-12-03] MEDS: MUCOMYST 20% 200 MG/ML NEB SCH ×2 (09:19→12:07)
[2018-12-03] MEDS: PULMICORT NEB TX 0.5 MG NEB SCH (09:19)
[2018-12-03] MEDS: XOPENEX 1.25 MG/3 ML NEBULE NEB SCH ×2 (09:19→12:08)
[2018-12-03] MEDS: BROVANA IN SCH (09:19)
[2018-12-03 12:27] VITALS: BP 144/63
== END 2018-12-03 16:55 | disposition home or self-care (01) | DRG 195 ==
LOC: MED/SURG 13:34
PROVIDERS: ADMIT Internal Medicine; ATTEND Internal Medicine
DX: J18.0 Bronchopneumonia, unspecified organism; K21.9 Gastro-esophageal reflux disease without esophagitis; R50.9 Fever, unspecified; I10 Essential (primary) hypertension; I25.10 Atherosclerotic heart disease of native coronary artery without angina pectoris; R06.02 Shortness of breath; R53.1 Weakness; E11.65 Type 2 diabetes mellitus with hyperglycemia
CPT/HCPCS: 36415; 36600; 71010; 71020; 71045; 71046; 80053; 81001; 82803; 85025; 87040; 87070; 87205; 87502; 93005; 94640; 94669; 94760; A4222; J0696; J1650; J1815; J1956; J2920; J7608; J7620; J7626

== ENCOUNTER 2020-11-03 16:26 | Inpatient (IN) ==
[2020-11-03 16:50] LABS: BASOPHILS # (AUTO) 0.1 X10^3/uL (0.0-0.1); BASOPHILS % (AUTO) 1.3 % (0.2-1.0); EOSINOPHILS # (AUTO) 0.3 x10^3/uL (0.0-0.2); EOSINOPHILS % (AUTO) 3.5 % (0.9-2.9); HEMATOCRIT 35.9 % (36.0-47.0); LYMPHOCYTES % (AUTO) 39.7 % (21.0-51.0); MEAN CORPUSCULAR HEMOGLOBIN 29.6 pg (27.0-34.0); MEAN CORPUSCULAR HGB CONC 33.4 g/dL (33.0-35.0); MEAN CORPUSCULAR VOLUME 88.4 fL (80.0-100.0); MEAN PLATELET VOLUME 8.5 fL (7.4-11.0); MONOCYTES # (AUTO) 0.7 x10^3/uL (0.3-0.8); MONOCYTES % (AUTO) 8.9 % (0.0-13.0); NEUTROPHILS # (AUTO) 3.5 x10^3/uL (2.2-4.8); NEUTROPHILS % (AUTO) 46.6 % (42.0-75.0); PLATELET COUNT 192 X10^3/uL (150.0-450.0); RED BLOOD COUNT 4.06 X10^6/uL (3.5-5.4); WHITE BLOOD COUNT 7.5 X10^3/uL (3.6-10.0)
--- NOTE | 2020-11-03 16:54 | CT ---
HISTORYPOSS STROKE, RIGHT SIDED WEAKNESSSTUDYBRAIN W/O CONCOMPARISONNoneTECHNIQUEAxial imaging was performed from the vertex to the base of skull without intravenous contrast being administered. Sagittal and coronal reformations were generated. Automated exposure control techniques were used with this exam.FINDINGSGeneralized age related atrophic changes are present. However there is no evidence of intracranial hemorrhage or extracerebral fluid collections. Ventricles are symmetric in size and position with no mass effect seen. Patchy low density is present in a periventricular white matter distribution consistent with chronic small vessel ischemia. On the bone windows, no acute bony abnormality is identified. Visualized aspect of the paranasal sinuses and mastoid air cells are clear.IMPRESSION1. No acute intracranial abnormality is seen on this exam.2. Age related atrophic changes and patchy areas of chronic small vessel ischemia are identified.Electronically signed by: WOLF EISENBERG (Nov 03, 2020 16:52:23)
--- NOTE | 2020-11-03 17:01 | DR.WEAKNES ---
HPI Time Seen Time Seen by Provider: 11/03/20 16:33 Complaints Chief Complaint Doctors Comments: pt received covid 19 vaccine this morning at 1300 she noticed both a difficulty speaking she stumbled over words and her left foot dragged no LOC no difficulty with thought no upper extremity weakness she states it has come and gone Timing Symptom Onset: Known Onset of Symptoms Start Date: 11/03/20 Onset of Symptoms Start Time: 13:00 Context Stroke Symptoms: Weakness of limb and Slurring PMH PMH Past Medical History: Arthritis, Coronary Artery Disease, Diabetes, GERD, Hype rtension and [place] Past Surgical History: Yes Surgical History: Cholecystectomy and Hysterectomy Family History Family Medical History: Diabetes Mellitus, Heart Failure and Hypertension Social History Do you use any recreational Drugs:: No Travel Risk Coronavirus risk:travel/contact w/high risk person: Yes Has patient experienced Coronavirus symptoms: No Infectious screening Isolation: Standard ROS Review of Systems Constitutional: No Symptoms Reported Eyes: No Symptoms Reported ENTM: No Symptoms Reported Respiratoy: No Symptoms Reported Cardiovascular: No Symptoms Reported Gastrointestinal/Abdominal: No Symptoms Reported Neurological: See HPI Musculoskeletal: No Symptoms Reported Integumentary: No Symptoms Reported Hematologic/Lymphatic: No Symptoms Reported Endocrine: No Symptoms Reported Psychiatric: No Symptoms Reported All Other Systems: Reviewed and Negative PE Vital Signs Vitals: Temperature 97.1 F Pulse Rate [Left Brachial] 70 Pulse Rate 70 Respiratory Rate 20 Blood Pressure [Right Arm] 144/63 Blood Pressure [Left Arm] 178/75 Blood Pressure 178/75 O2 Sat by Pulse Oximetry 96 General Limitations: No Limitations General Appearance: Alert and In No Apparent Distress Head Head Exam: Normal Inspection, Atraumatic and Normocephalic Eyes Eye exam: Normal Appearance, PERRL and EOMI Eyelids: Normal Inspection: Bilateral Pupils: Regular, Round: Bilateral Sclera/Conjunctival: Normal Inspection: Bilateral Anterior Chamber: Normal Inspection: Bilateral ENT ENT Exam: Normal Exam, Normal Oropharynx, Normal External Ear Exam and Mucous Membranes Moist Throat Exam: Normal Inspection Neck Neck Exam: Normal Inspection, Full ROM and Trachea Midline Chest Chest Inspection: Normal Inspection and Symmetric Chest Wall Rise; negative Tenderness Respiratory Respiratory Exam: Normal Lung Sounds Bilat; negative Accessory Muscle Use and Chest Wall Tenderness Respiratory Exam: Bilateral: Clear to Auscultation Cardiovascular Cardiovascular Exam: Regular Rate, Normal Rhythm and Normal Heart Sounds Abdominal Exam Abdominal Exam: Normal Inspection, Normal Bowel Sounds and Soft; negative Dist ention, Tenderness and Guarding Extremities Extremities Exam: Normal Inspection and Full ROM; negative Tenderness, Edema and Joint Swelling Back Back Exam: Normal Inspection and Full ROM; negative Tenderness, (R) CVA Tenderness, (L) CVA Tenderness and Muscle Spasm Neurologic Neurological Exam: Alert, Oriented X3, CN II-XII Intact and Reflexes Normal; negative Motor Sensory Deficit Patient Oriented To: Person, Place and Time Speech: Fluid Speech Cranial Nerve Exam: EOM Function (II, III, IV, ): Normal, Facial Sensation (V): Normal, Facial Palsy (VII): Normal, Gag reflex (XI): Normal, Spinal Ac cessory Function (XI): Normal and Tongue Deviation: Normal Cerebellar Function: Finger to Nose: Normal and Heel to Basilio: Normal Motor Strength - LUE: 5/5 Motor Strength - RUE: 5/5 Motor Strength - LLE: 5/5 Motor Strength - RLE: 5/5 Upper Motor Neuron Exam: Oz Neglect: Normal, Pronator Drift: Normal, Babinski Sign: Normal and Sensory Extinction: Normal Sensory Exam Upper Extremity: Light Touch: Normal Sensory Exam Lower Extremity: Light Touch: Normal Psychiatric Psychiatric Exam: Normal Affect and Normal Mood ROR Labs Reviewed Result Diagrams: 11/03/20 16:45 11/03/20 16:45 Laboratory: WBC 7.5 X10^3/uL (3.6-10.0) 11/03/20 16:45 RBC 4.06 X10^6/uL (3.5-5.4) 11/03/20 16:45 Hgb 12.0 g/dL (12.0-16.0) 11/03/20 16:45 Hct 35.9 % (36.0-47.0) L 11/03/20 16:45 MCV 88.4 fL (80.0-100.0) 11/03/20 16:45 MCH 29.6 pg (27.0-34.0) 11/03/20 16:45 MCHC 33.4 g/dL (33.0-35.0) 11/03/20 16:45 RDW 13.0 % (11.6-16.5) 11/03/20 16:45 Plt Count 192 X10^3/uL (150.0-450.0) 11/03/20 16:45 MPV 8.5 fL (7.4-11.0) 11/03/20 16:45 Neut % (Auto) 46.6 % (42.0-75.0) 11/03/20 16:45 Lymph % (Auto) 39.7 % (21.0-51.0) 11/03/20 16:45 [place] % (Auto) 8.9 % (0.0-13.0) 11/03/20 16:45 Eos % (Auto) 3.5 % (0.9-2.9) H 11/03/20 16:45 Baso % (Auto) 1.3 % (0.2-1.0) H 11/03/20 16:45 Neut # (Auto) 3.5 x10^3/uL (2.2-4.8) 11/03/20 16:45 Lymph # (Auto) 3.0 X10^3/uL (1.3-2.9) H 11/03/20 16:45 [place] # (Auto) 0.7 x10^3/uL (0.3-0.8) 11/03/20 16:45 Eos # (Auto) 0.3 x10^3/uL (0.0-0.2) H 11/03/20 16:45 Baso # (Auto) 0.1 X10^3/uL (0.0-0.1) 11/03/20 16:45 Absolute Nucleated RBC 0.0 /100WBC 11/03/20 16:45 PT 13.0 SECONDS (11.8-14.3) 11/03/20 16:45 INR Target Range - 11/03/20 16:45 INR 1.01 (0.8-1.3) 11/03/20 16:45 APTT 30.8 SECONDS (22.9-36.5) 11/03/20 16:45 PTT Comment - 11/03/20 16:45 Fibrinogen 420 mg/dL (239-489) 11/03/20 16:45 Sodium 140 mmol/L (136-145) 11/03/20 16:45 Corrected Sodium 141 mmol/L (136-145) 11/03/20 16:45 Potassium 4.3 mmol/L (3.5-5.1) 11/03/20 16:45 Chloride 105 mmol/L (98-107) 11/03/20 16:45 Carbon Dioxide 26.5 mmol/L (21-32) 11/03/20 16:45 BUN 33 mg/dL (7-18) H 11/03/20 16:45 Creatinine 1.34 mg/dL (0.55-1.02) H 11/03/20 16:45 Est GFR (MDRD) Af Amer 49 (>60) L 11/03/20 16:45 Est GFR (MDRD) Non-Af 40 (>60) L 11/03/20 16:45 Glucose 137 mg/dL (65-99) H 11/03/20 16:45 Calcium 8.8 mg/dL (8.5-10.1) 11/03/20 16:45 Corrected Calcium 9.4 mg/dL (8.5-10.1) 11/03/20 16:45 Total Bilirubin 0.20 mg/dL (0.2-1.0) 11/03/20 16:45 AST 15 Units/L (15-37) 11/03/20 16:45 ALT 14 Units/L (12-78) 11/03/20 16:45 Alkaline Phosphatase 106 Units/L (46-116) 11/03/20 16:45 Creatine Kinase 102 Units/L (26-192) 11/03/20 16:45 CK-MB (CK-2) 2.3 ng/mL (0-4.0) 11/03/20 16:45 CK/CKMB % Calc 2.3 % (<4) 11/03/20 16:45 Troponin I < 0.02 ng/mL (0-1.5) 11/03/20 16:45 Total Protein 6.8 g/dL (6.4-8.2) 11/03/20 16:45 Albumin 3.3 g/dL (3.4-5.0) L 11/03/20 16:45 Globulin 3.5 g/dL (2.5-4.5) 11/03/20 16:45 Albumin/Globulin Ratio 0.9 Ratio (1.1-2.1) L 11/03/20 16:45 Opioid Opioid Risk Tool Age (Benjamin box if 16-45): No History of Preadolescent Sexual Abuse: No Total: 0 Total Score Risk Category: Low Risk Copyright: Maikol GROVE predicting aberrant behaviors Diagnosis Discharge Problem: Neurological deficit, transient
[2020-11-03 17:02] VITALS: BMI 30.1
[2020-11-03 17:10] LABS: BLOOD UREA NITROGEN 33 mg/dL (7-18); CALCIUM 8.8 mg/dL (8.5-10.1); CARBON DIOXIDE 26.5 mmol/L (21-32); CHLORIDE 105 mmol/L (98-107); COR NA(FOR HYPERGLY) 141 mmol/L (136-145); CREATININE 1.34 mg/dL (0.55-1.02); SODIUM 140 mmol/L (136-145); TROPONIN I < 0.02 ng/mL (0-1.5); eGFR NON BLACK RACES 40 (>60)
[2020-11-03 17:14] LABS: ALANINE AMINOTRANSFERASE 14 Units/L (12-78); ALBUMIN 3.3 g/dL (3.4-5.0); ALKALINE PHOSPHATASE 106 Units/L (46-116); ASPARTATE AMINO TRANSFERASE 15 Units/L (15-37); CKMB % 2.3 % (<4); COR CA(FOR HYPOALB) 9.4 mg/dL (8.5-10.1); CREATINE KINASE 102 Units/L (26-192); CREATINE KINASE MB 2.3 ng/mL (0-4.0); TOTAL PROTEIN 6.8 g/dL (6.4-8.2)
[2020-11-03 19:06] LABS: BILIRUBIN,URINE NEGATIVE (NEGATIVE); BLOOD/HEMOGLOBIN,URINE NEGATIVE (NEGATIVE); GLUCOSE, URINE NEGATIVE (NEGATIVE); KETONES,URINE NEGATIVE (NEGATIVE); LEUKOCYTE ESTERASE ,URINE 1+ (NEGATIVE); NITRITES,URINE NEGATIVE (NEGATIVE); PROTEIN,URINE NEGATIVE (NEGATIVE); UROBILINOGEN,URINE NORMAL (NORMAL)
--- NOTE | 2020-11-03 19:07 | DR.WEAKNES ---
HPI Time Seen Time Seen by Provider: 11/03/20 16:33 Primary Care Physician Primary Care Physician: tray mcdermott Complaints Chief Complaint:: think i had a stroke today. pt received covid shot today and about 1300 when walking up her ramp noted to have her right foot dragging. it was later that she noted she had what she thought to be slurred speech while talking to a frined on the phone. she had ems come out and evaluate her earlier but she declined transport then. she has now called a friend to brng her to the hospital for evaluation. Self Treatment fo Chief Complaint: she took 2 325mg asa this am one prior to elena t and one after. Source History Provided: Patient and Friend Mode of Arrival Mode of Arrival: Ambulatory Timing Onset of Chief Complaint: 11/03/20 Symptom Onset: Known Onset of Symptoms Start Date: 11/03/20 Onset of Symptoms Start Time: 13:00 Context Stroke Symptoms: Weakness of limb and Slurring PMH PMH Past Medical History: Yes Past Medical History: Arthritis, Coronary Artery Disease, Diabetes, GERD, Hypertension and [place] Past Surgical History: Yes Surgical History: Cholecystectomy and Hysterectomy Family History History of Family Medical Conditions: Yes Family Medical History: Diabetes Mellitus, Heart Failure and Hypertension Social History Does any household member use tobacco: No Alcohol Use: None Do you use any recreational Drugs:: No Lives With: Alone Lives Where: Home Travel Risk Coronavirus risk:travel/contact w/high risk person: Yes Has patient experienced Coronavirus symptoms: No Infectious screening In the last 2 months have you had wt loss of >10#?: NO Have you had fever, night sweats or hemotysis?: No Have you traveled outside the country in the last 6 months?: No Isolation: Standard ROS Review of Systems Constitutional: No Symptoms Reported Eyes: No Symptoms Reported ENTM: No Symptoms Reported Respiratoy: No Symptoms Reported Cardiovascular: No Symptoms Reported Gastrointestinal/Abdominal: No Symptoms Reported Genitourinary: No Symptoms Reported Neurological: See HPI Musculoskeletal: See HPI Integumentary: No Symptoms Reported Hematologic/Lymphatic: No Symptoms Reported Endocrine: No Symptoms Reported Psychiatric: No Symptoms Reported All Other Systems: Reviewed and Negative PE Vital Signs Vitals: Temperature 97.1 F Pulse Rate [Left Brachial] 70 Pulse Rate 70 Respiratory Rate 20 Blood Pressure [Right Arm] 144/63 Blood Pressure [Left Arm] 178/75 Blood Pressure 178/75 O2 Sat by Pulse Oximetry 96 General Limitations: No Limitations; negative Altered Mental Status General Appearance: Alert and In No Apparent Distress Head Head Exam: Normal Inspection and Atraumatic Eyes Eye exam: Normal Appearance, PERRL and EOMI; negative Conjunctival Injection Eyelids: Normal Inspection: Bilateral Pupils: Regular, Round: Bilateral Sclera/Conjunctival: Normal Inspection: Bilateral Anterior Chamber: Normal Inspection: Bilateral ENT ENT Exam: Normal Exam, Normal Oropharynx and Mucous Membranes Moist Mouth Exam: Normal Inspection Throat Exam: Normal Inspection; negative Tonsillar Erythema, Tonsillomegaly, Tonsillar Exudate, R Peritonsillar Mass and L Peritonsillar Mass Neck Neck Exam: Normal Inspection, Full ROM and Trachea Midline Chest Chest Inspection: Normal Inspection and Symmetric Chest Wall Rise; negative Tenderness Respiratory Respiratory Exam: Normal Lung Sounds Bilat; negative Accessory Muscle Use and Chest Wall Tenderness Respiratory Exam: Bilateral: Clear to Auscultation Cardiovascular Cardiovascular Exam: Regular Rate, Normal Rhythm and Normal Heart Sounds Abdominal Exam Abdominal Exam: Normal Inspection, Normal Bowel Sounds and Soft Extremities Extremities Exam: Normal Inspection, Full ROM and Normal Capillary Refill; neg ative Tenderness, Edema, Joint Swelling and Calf Tenderness Back Back Exam: Normal Inspection and Full ROM; negative Tenderness, (R) CVA Tenderness, (L) CVA Tenderness, Muscle Spasm, Paraspinal Tenderness and Verteb ral Tenderness Neurologic Neurological Exam: Alert, Oriented X3, CN II-XII Intact, Normal Gait and Reflexes Normal; negative Motor Sensory Deficit Patient Oriented To: Place and Time Speech: Fluid Speech Cranial Nerve Exam: EOM Function (II, III, IV, ): Normal, Facial Sensation (V): Normal, Facial Palsy (VII): Normal, Gag reflex (XI): Normal, Spinal Accessory Function (XI): Normal and Tongue Deviation: Normal Cerebellar Function: Finger to Nose: Normal and Heel to Basilio: Normal Cerebellar Function: Normal Gait Motor Strength - LUE: 5/5 Motor Strength - RUE: 5/5 Motor Strength - LLE: 5/5 Motor Strength - RLE: 5/5 Upper Motor Neuron Exam: Oz Neglect: Normal, Pronator Drift: Normal, Babinski Sign: Normal and Sensory Extinction: Normal Sensory Exam Upper Extremity: Light Touch: Normal Sensory Exam Lower Extremity: Light Touch: Normal Psychiatric Psychiatric Exam: Normal Affect and Normal Mood Skin Skin Exam: Warm, Dry and Normal Color MDM Differential Diagnosis Differential Diagnosis: CVA, DKA, Electrolyte Disorder and Hypoglycemia COURSE Consultation Called: 17:00 Call Returned: 18:16 ROR Labs Reviewed Laboratory Results Reviewed?: Yes Result Diagrams: 11/03/20 16:45 11/03/20 16:45 Laboratory: WBC 7.5 X10^3/uL (3.6-10.0) 11/03/20 16:45 RBC 4.06 X10^6/uL (3.5-5.4) 11/03/20 16:45 Hgb 12.0 g/dL (12.0-16.0) 11/03/20 16:45 Hct 35.9 % (36.0-47.0) L 11/03/20 16:45 MCV 88.4 fL (80.0-100.0) 11/03/20 16:45 MCH 29.6 pg (27.0-34.0) 11/03/20 16:45 MCHC 33.4 g/dL (33.0-35.0) 11/03/20 16:45 RDW 13.0 % (11.6-16.5) 11/03/20 16:45 Plt Count 192 X10^3/uL (150.0-450.0) 11/03/20 16:45 MPV 8.5 fL (7.4-11.0) 11/03/20 16:45 Neut % (Auto) 46.6 % (42.0-75.0) 11/03/20 16:45 Lymph % (Auto) 39.7 % (21.0-51.0) 11/03/20 16:45 [place] % (Auto) 8.9 % (0.0-13.0) 11/03/20 16:45 Eos % (Auto) 3.5 % (0.9-2.9) H 11/03/20 16:45 Baso % (Auto) 1.3 % (0.2-1.0) H 11/03/20 16:45 Neut # (Auto) 3.5 x10^3/uL (2.2-4.8) 11/03/20 16:45 Lymph # (Auto) 3.0 X10^3/uL (1.3-2.9) H 11/03/20 16:45 [place] # (Auto) 0.7 x10^3/uL (0.3-0.8) 11/03/20 16:45 Eos # (Auto) 0.3 x10^3/uL (0.0-0.2) H 11/03/20 16:45 Baso # (Auto) 0.1 X10^3/uL (0.0-0.1) 11/03/20 16:45 Absolute Nucleated RBC 0.0 /100WBC 11/03/20 16:45 PT 13.0 SECONDS (11.8-14.3) 11/03/20 16:45 INR Target Range - 11/03/20 16:45 INR 1.01 (0.8-1.3) 11/03/20 16:45 APTT 30.8 SECONDS (22.9-36.5) 11/03/20 16:45 PTT Comment - 11/03/20 16:45 Fibrinogen 420 mg/dL (239-489) 11/03/20 16:45 Sodium 140 mmol/L (136-145) 11/03/20 16:45 Corrected Sodium 141 mmol/L (136-145) 11/03/20 16:45 Potassium 4.3 mmol/L (3.5-5.1) 11/03/20 16:45 Chloride 105 mmol/L (98-107) 11/03/20 16:45 Carbon Dioxide 26.5 mmol/L (21-32) 11/03/20 16:45 BUN 33 mg/dL (7-18) H 11/03/20 16:45 Creatinine 1.34 mg/dL (0.55-1.02) H 11/03/20 16:45 Est GFR (MDRD) Af Amer 49 (>60) L 11/03/20 16:45 Est GFR (MDRD) Non-Af 40 (>60) L 11/03/20 16:45 Glucose 137 mg/dL (65-99) H 11/03/20 16:45 Calcium 8.8 mg/dL (8.5-10.1) 11/03/20 16:45 Corrected Calcium 9.4 mg/dL (8.5-10.1) 11/03/20 16:45 Total Bilirubin 0.20 mg/dL (0.2-1.0) 11/03/20 16:45 AST 15 Units/L (15-37) 11/03/20 16:45 ALT 14 Units/L (12-78) 11/03/20 16:45 Alkaline Phosphatase 106 Units/L (46-116) 11/03/20 16:45 Creatine Kinase 102 Units/L (26-192) 11/03/20 16:45 CK-MB (CK-2) 2.3 ng/mL (0-4.0) 11/03/20 16:45 CK/CKMB % Calc 2.3 % (<4) 11/03/20 16:45 Troponin I < 0.02 ng/mL (0-1.5) 11/03/20 16:45 Total Protein 6.8 g/dL (6.4-8.2) 11/03/20 16:45 Albumin 3.3 g/dL (3.4-5.0) L 11/03/20 16:45 Globulin 3.5 g/dL (2.5-4.5) 11/03/20 16:45 Albumin/Globulin Ratio 0.9 Ratio (1.1-2.1) L 11/03/20 16:45 XRAY XRAY Interpreted by: Radiologist X-ray Results: CT head NAD EKG Rate: 61 [place]: Normal Rhythm: NSR Block: None Hypertrophy: None ST: Inf Opioid Opioid Risk Tool Age (Benjamin box if 16-45): No History of Preadolescent Sexual Abuse: No Total: 0 Total Score Risk Category: Low Risk Copyright: Maikol GROVE predicting aberrant behaviors Diagnosis Discharge Problem: Neurological deficit, transient
[2020-11-03 19:14] LABS: APPEARANCE,URINE CLEAR (CLEAR); BACTERIA,URINE NEGATIVE /HPF (NEGATIVE); COLOR,URINE YELLOW (YELLOW); RBC,URINE NONE SEEN /HPF (0-3); SQUAMOUS EPITHELIAL CELL,UR RARE /HPF (NEGATIVE)
--- NOTE | 2020-11-03 19:52 | DR.WEAKNES ---
HPI Time Seen Time Seen by Provider: 11/03/20 16:33 Primary Care Physician Primary Care Physician: tray mcdermott Complaints Chief Complaint:: think i had a stroke today. pt received covid shot today and about 1300 when walking up her ramp noted to have her right foot dragging. it was later that she noted she had what she thought to be slurred speech while talking to a frined on the phone. she had ems come out and evaluate her earlier but she declined transport then. she has now called a friend to brng her to the hospital for evaluation. Self Treatment fo Chief Complaint: she took 2 325mg asa this am one prior to elena t and one after. Source History Provided: Patient and Friend Mode of Arrival Mode of Arrival: Ambulatory Timing Onset of Chief Complaint: 11/03/20 Symptom Onset: Known Onset of Symptoms Start Date: 11/03/20 Onset of Symptoms Start Time: 13:00 Context Stroke Symptoms: Weakness of limb and Slurring PMH PMH Past Medical History: Yes Past Medical History: Arthritis, Coronary Artery Disease, Diabetes, GERD, Hypertension and [place] Past Surgical History: Yes Surgical History: Cholecystectomy and Hysterectomy Family History History of Family Medical Conditions: Yes Family Medical History: Diabetes Mellitus, Heart Failure and Hypertension Social History Does any household member use tobacco: No Alcohol Use: None Do you use any recreational Drugs:: No Lives With: Alone Lives Where: Home Travel Risk Coronavirus risk:travel/contact w/high risk person: Yes Has patient experienced Coronavirus symptoms: No Infectious screening In the last 2 months have you had wt loss of >10#?: NO Have you had fever, night sweats or hemotysis?: No Have you traveled outside the country in the last 6 months?: No Isolation: Standard ROS Review of Systems Constitutional: No Symptoms Reported Eyes: No Symptoms Reported ENTM: No Symptoms Reported Respiratoy: No Symptoms Reported Cardiovascular: No Symptoms Reported Gastrointestinal/Abdominal: No Symptoms Reported Genitourinary: No Symptoms Reported Neurological: See HPI Integumentary: No Symptoms Reported Endocrine: No Symptoms Reported Psychiatric: No Symptoms Reported All Other Systems: Reviewed and Negative PE Vital Signs Vitals: Temperature 98.8 F Pulse Rate [Left] 63 Pulse Rate [Left Brachial] 70 Pulse Rate 76 Respiratory Rate 18 Blood Pressure [Right Arm] 139/61 Blood Pressure [Left Arm] 122/59 Blood Pressure 178/75 O2 Sat by Pulse Oximetry 92 General Limitations: No Limitations General Appearance: Alert and In No Apparent Distress Head Head Exam: Normal Inspection, Atraumatic and Normocephalic Eyes Eye exam: Normal Appearance, PERRL and EOMI; negative Scleral Icterus and Conjunctival Injection Eyelids: Normal Inspection: Bilateral Pupils: Regular, Round: Bilateral Sclera/Conjunctival: Normal Inspection: Bilateral Anterior Chamber: Normal Inspection: Bilateral ENT ENT Exam: Normal Exam, Normal Oropharynx and Mucous Membranes Moist Mouth Exam: Normal Inspection; negative Drooling and Tongue Elevation Throat Exam: Normal Inspection; negative Tonsillar Erythema, Tonsillomegaly, Tonsillar Exudate, R Peritonsillar Mass and L Peritonsillar Mass Neck Neck Exam: Normal Inspection, Full ROM and Trachea Midline Chest Chest Inspection: Normal Inspection and Symmetric Chest Wall Rise; negative Tenderness Respiratory Respiratory Exam: Normal Lung Sounds Bilat; negative Accessory Muscle Use and Chest Wall Tenderness Respiratory Exam: Bilateral: Clear to Auscultation Cardiovascular Cardiovascular Exam: Regular Rate, Normal Rhythm and Normal Heart Sounds Abdominal Exam Abdominal Exam: Normal Inspection, Normal Bowel Sounds and Soft Extremities Extremities Exam: Normal Inspection and Full ROM; negative Tenderness Back Back Exam: Normal Inspection and Full ROM; negative Tenderness Neurologic Neurological Exam: Alert, Oriented X3, CN II-XII Intact, Normal Gait and Reflexes Normal; negative Motor Sensory Deficit Speech: Fluid Speech Cranial Nerve Exam: EOM Function (II, III, IV, ): Normal, Facial Sensation (V): Normal, Facial Palsy (VII): Normal, Gag reflex (XI): Normal, Spinal Accessory Function (XI): Normal and Tongue Deviation: Normal Cerebellar Function: Finger to Nose: Normal and Heel to Basilio: Normal Cerebellar Function: Normal Gait Motor Strength - LUE: 5/5 Motor Strength - RUE: 5/5 Motor Strength - LLE: 5/5 Motor Strength - RLE: 5/5 Skin Skin Exam: Warm, Dry and Intact ROR Labs Reviewed Laboratory Results Reviewed?: Yes Result Diagrams: 11/05/20 06:08 11/05/20 06:08 Laboratory: WBC 4.9 X10^3/uL (3.6-10.0) 11/05/20 06:08 RBC 4.14 X10^6/uL (3.5-5.4) 11/05/20 06:08 Hgb 12.3 g/dL (12.0-16.0) 11/05/20 06:08 Hct 36.2 % (36.0-47.0) 11/05/20 06:08 MCV 87.5 fL (80.0-100.0) 11/05/20 06:08 MCH 29.8 pg (27.0-34.0) 11/05/20 06:08 MCHC 34.1 g/dL (33.0-35.0) 11/05/20 06:08 RDW 12.7 % (11.6-16.5) 11/05/20 06:08 Plt Count 164 X10^3/uL (150.0-450.0) 11/05/20 06:08 MPV 8.7 fL (7.4-11.0) 11/05/20 06:08 Neut % (Auto) 61.5 % (42.0-75.0) 11/05/20 06:08 Lymph % (Auto) 24.3 % (21.0-51.0) 11/05/20 06:08 [place] % (Auto) 11.0 % (0.0-13.0) 11/05/20 06:08 Eos % (Auto) 2.0 % (0.9-2.9) 11/05/20 06:08 Baso % (Auto) 1.2 % (0.2-1.0) H 11/05/20 06:08 Neut # (Auto) 3.0 x10^3/uL (2.2-4.8) 11/05/20 06:08 Lymph # (Auto) 1.2 X10^3/uL (1.3-2.9) L 11/05/20 06:08 [place] # (Auto) 0.5 x10^3/uL (0.3-0.8) 11/05/20 06:08 Eos # (Auto) 0.1 x10^3/uL (0.0-0.2) 11/05/20 06:08 Baso # (Auto) 0.1 X10^3/uL (0.0-0.1) 11/05/20 06:08 Absolute Nucleated RBC 0.1 /100WBC 11/05/20 06:08 PT 13.0 SECONDS (11.8-14.3) 11/03/20 16:45 INR Target Range - 11/03/20 16:45 INR 1.01 (0.8-1.3) 11/03/20 16:45 APTT 30.8 SECONDS (22.9-36.5) 11/03/20 16:45 PTT Comment - 11/03/20 16:45 Fibrinogen 420 mg/dL (239-489) 11/03/20 16:45 Sodium 138 mmol/L (136-145) 11/05/20 06:08 Corrected Sodium TNP 11/05/20 06:08 Potassium 4.5 mmol/L (3.5-5.1) 11/05/20 06:08 Chloride 103 mmol/L (98-107) 11/05/20 06:08 Carbon Dioxide 24.9 mmol/L (21-32) 11/05/20 06:08 BUN 19 mg/dL (7-18) H 11/05/20 06:08 Creatinine 1.20 mg/dL (0.55-1.02) H 11/05/20 06:08 Est GFR (MDRD) Af Amer 55 (>60) L 11/05/20 06:08 Est GFR (MDRD) Non-Af 46 (>60) L 11/05/20 06:08 Glucose 104 mg/dL (65-99) H 11/05/20 06:08 POC Glucose (mg/dL) 108 mg/dL (65-99) H 11/05/20 11:44 Calcium 8.9 mg/dL (8.5-10.1) 11/05/20 06:08 Corrected Calcium 9.5 mg/dL (8.5-10.1) 11/05/20 06:08 Total Bilirubin 0.40 mg/dL (0.2-1.0) 11/05/20 06:08 AST 20 Units/L (15-37) 11/05/20 06:08 ALT 12 Units/L (12-78) 11/05/20 06:08 Alkaline Phosphatase 82 Units/L (46-116) 11/05/20 06:08 Creatine Kinase 102 Units/L (26-192) 11/03/20 16:45 CK-MB (CK-2) 2.3 ng/mL (0-4.0) 11/03/20 16:45 CK/CKMB % Calc 2.3 % (<4) 11/03/20 16:45 Troponin I < 0.02 ng/mL (0-1.5) 11/03/20 16:45 Total Protein 6.7 g/dL (6.4-8.2) 11/05/20 06:08 Albumin 3.2 g/dL (3.4-5.0) L 11/05/20 06:08 Globulin 3.5 g/dL (2.5-4.5) 11/05/20 06:08 Albumin/Globulin Ratio 0.9 Ratio (1.1-2.1) L 11/05/20 06:08 Specimen Type Clean catch urine 11/03/20 18: Urine Color Yellow (YELLOW) 11/03/20 18: Urine Appearance Clear (CLEAR) 11/03/20 18: Urine pH 5.0 (5.0 - 8.0) 11/03/20 18:27 Ur Specific [place] 1.015 (1.000-1.030) 11/03/20 18: Urine Protein Negative (NEGATIVE) 11/03/20 18: Urine Glucose (UA) Negative (NEGATIVE) 11/03/20 18: Urine Ketones Negative (NEGATIVE) 11/03/20 18:27 Urine Occult Blood Negative (NEGATIVE) 11/03/20 18: Urine Nitrite Negative (NEGATIVE) 11/03/20 18: Urine Bilirubin Negative (NEGATIVE) 11/03/20 18:27 Urine Urobilinogen Normal (NORMAL) 11/03/20 18:27 Ur Leukocyte Esterase 1+ (NEGATIVE) 11/03/20 18:27 Urine RBC None seen /HPF (0-3) 11/03/20 18: Urine WBC 0-2 /HPF (0-5) 11/03/20 18:27 Ur Squamous Epith Cells Rare /HPF (NEGATIVE) 11/03/20 18:27 Urine Bacteria Negative /HPF (NEGATIVE) 11/03/20 18:27 Ur Culture Indicated? No/not indicated 11/03/20 18: XRAY X-ray Results: ct head read by radiologist viewed by pr NAD EKG Rate: 61 [place]: Normal Rhythm: NSR Block: None Hypertrophy: None ST: Normal Opioid Opioid Risk Tool Age (Benjamin box if 16-45): No History of Preadolescent Sexual Abuse: No Total: 0 Total Score Risk Category: Low Risk Copyright: Maikol GROVE predicting aberrant behaviors Diagnosis Discharge Problem: Neurological deficit, transient Instructions Instructions: Fall Prevention in the Home, Adult, [id number] How To Use a Four-Wheeled Walker Hand Washing, [id number] Stroke Prevention, [id number] Understanding Your Risk for Falls Transient Ischemic Attack, [id number] Ischemic Stroke, [id number] Bleeding Precautions When on Anticoagulant Therapy, Adult Hospital Discharge After a Stroke Hypertension, [id number] Rehabilitation After a Stroke, Adult Partial Thromboplastin Time Test [id number] Exercise Weakness Managing Your Hypertension Forms: Excuse From Work or School Excuse From Work Precautions for COVID19 Patient Portal Social Distancing
[2020-11-03] MEDS ORDERED: ASPIRIN 81 MG CHEWTAB ONE (20:33)
[2020-11-03] MEDS: ASPIRIN 81 MG CHEWTAB PO SCH (20:38)
[2020-11-03] MEDS ORDERED: COREG TAB 3.125 MG PO ONE (23:00)
[2020-11-03] MEDS ORDERED: COLACE CAP 100 MG PO PRN (23:05)
[2020-11-03] MEDS ORDERED: PATIENT'S HOME MEDICATION (Fluticasone Propion-Salmeterol 250-50 mcg/dose Blister With Dev IN SCH (23:05)
[2020-11-03] MEDS ORDERED: COREG TAB 3.125 MG PO SCH (23:05)
[2020-11-03] MEDS ORDERED: GLUCOPHAGE ONE (23:28)
[2020-11-03] MEDS ORDERED: ZESTRIL TAB 20 MG ONE (23:28)
[2020-11-03] MEDS: ZESTRIL TAB 20 MG PO SCH (23:35)
[2020-11-03] MEDS: GLUCOPHAGE PO SCH (23:35)
[2020-11-04] MEDS ORDERED: GLUCOPHAGE ONE (08:04)
[2020-11-04] MEDS ORDERED: ZESTRIL TAB 20 MG ONE (08:06)
[2020-11-04] MEDS: GLUCOPHAGE PO SCH ×2 (08:51→20:53)
[2020-11-04] MEDS: SYNTHROID 112 mcg TAB PO SCH (08:52)
[2020-11-04] MEDS: COREG TAB 3.125 MG PO SCH ×2 (08:55→20:51)
[2020-11-04] MEDS: PROTONIX TAB 40 MG PO SCH (08:55)
[2020-11-04] MEDS: ASPIRIN 81 MG CHEWTAB PO SCH (08:55)
[2020-11-04] MEDS: HEMOCYTE-PLUS PO SCH (08:55)
[2020-11-04] MEDS: ZESTRIL TAB 20 MG PO SCH (08:55)
[2020-11-04] MEDS: ESTRACE PO SCH (08:55)
[2020-11-04] MEDS ORDERED: VALIUM PO ONE (11:37)
[2020-11-04] MEDS ORDERED: LOVENOX INJ 40 MG SYR SC SCH (12:00)
--- NOTE | 2020-11-04 13:44 | MRI ---
MRA HEAD W/O CONIndication: "Transient neuro changes"Technique: 3D [id number] imaging of the intracranial circulation was obtained.Comparison: CT head from same dayFindings: There is mild atherosclerotic narrowing without flow limiting stenosis of the left greater than right cavernous ICAs. The proximal ACAs, MCAs and sandblaster glass are widely patent without significant flow limiting stenosis. Vertebrobasilar system is also widely patent. No aneurysm or vascular malformation seen.Impression:Mild atherosclerotic narrowing of the left greater than right cavernous ICAs.Otherwise, unremarkable MRA of the brain. No significant flow limiting stenosis or occlusion of the major intracranial arteries.Electronically signed by: ANABEL JOSE (Nov 04, 2020 13:42:56)
--- NOTE | 2020-11-04 13:45 | MRI ---
HISTORYTRANSIENT NEURO CHANGESSTUDYMRA NECK W/O CONCOMPARISONNone [id number] through the vessels of the neck was performed without contrast.FINDINGSThere are codominant vertebral arteries with normal flow attenuation throughout the neck. There is a bovine type arch. There is normal flow attenuation of the common carotid arteries and internal carotid arteries without evidence of focal stenoses, no suspicious for dissection. There is mild less than 40 percent narrowing of the mid right internal carotid artery probably due to some motion artifact, seen in the source images at the level.IMPRESSIONNo MRA evidence of significant bilateral internal carotid arteries stenoses. Mild tortuosity of the vessels.Electronically signed by: Dior Hagan (Nov 04, 2020 13:43:39)
[2020-11-04] MEDS: LOVENOX INJ 40 MG SYR SC SCH (14:19)
[2020-11-04] MEDS: PROVENTIL NEB TX 0.083% 2.5MG/ 3ML NEB SCH (20:45)
[2020-11-04] MEDS: PULMICORT NEB TX 0.5 MG NEB SCH (20:45)
[2020-11-05 06:36] LABS: BASOPHILS # (AUTO) 0.1 X10^3/uL (0.0-0.1); BASOPHILS % (AUTO) 1.2 % (0.2-1.0); EOSINOPHILS # (AUTO) 0.1 x10^3/uL (0.0-0.2); HEMATOCRIT 36.2 % (36.0-47.0); HEMOGLOBIN 12.3 g/dL (12.0-16.0); LYMPHOCYTES # (AUTO) 1.2 X10^3/uL (1.3-2.9); LYMPHOCYTES % (AUTO) 24.3 % (21.0-51.0); MEAN CORPUSCULAR HEMOGLOBIN 29.8 pg (27.0-34.0); MEAN CORPUSCULAR HGB CONC 34.1 g/dL (33.0-35.0); MEAN CORPUSCULAR VOLUME 87.5 fL (80.0-100.0); MEAN PLATELET VOLUME 8.7 fL (7.4-11.0); MONOCYTES # (AUTO) 0.5 x10^3/uL (0.3-0.8); NEUTROPHILS % (AUTO) 61.5 % (42.0-75.0); PLATELET COUNT 164 X10^3/uL (150.0-450.0); RED BLOOD COUNT 4.14 X10^6/uL (3.5-5.4); RED CELL DISTRIBUTION WIDTH 12.7 % (11.6-16.5); WHITE BLOOD COUNT 4.9 X10^3/uL (3.6-10.0)
[2020-11-05 07:17] LABS: ALANINE AMINOTRANSFERASE 12 Units/L (12-78); ALBUMIN 3.2 g/dL (3.4-5.0); ALKALINE PHOSPHATASE 82 Units/L (46-116); ASPARTATE AMINO TRANSFERASE 20 Units/L (15-37); BLOOD UREA NITROGEN 19 mg/dL (7-18); CALCIUM 8.9 mg/dL (8.5-10.1); CARBON DIOXIDE 24.9 mmol/L (21-32); CHLORIDE 103 mmol/L (98-107); COR CA(FOR HYPOALB) 9.5 mg/dL (8.5-10.1); SODIUM 138 mmol/L (136-145); TOTAL PROTEIN 6.7 g/dL (6.4-8.2); eGFR NON BLACK RACES 46 (>60)
[2020-11-05] MEDS ORDERED: ZESTRIL TAB 20 MG ONE (08:16)
[2020-11-05] MEDS: LOVENOX INJ 40 MG SYR SC SCH (08:29)
[2020-11-05] MEDS: ESTRACE PO SCH (08:30)
[2020-11-05] MEDS: ASPIRIN 81 MG CHEWTAB PO SCH (08:30)
[2020-11-05] MEDS: COREG TAB 3.125 MG PO SCH ×2 (08:30→20:20)
[2020-11-05] MEDS: ZESTRIL TAB 20 MG PO SCH (08:30)
[2020-11-05] MEDS: GLUCOPHAGE PO SCH ×2 (08:30→22:14)
[2020-11-05] MEDS: PROTONIX TAB 40 MG PO SCH (08:31)
[2020-11-05] MEDS: HEMOCYTE-PLUS PO SCH (08:31)
[2020-11-05] MEDS: SYNTHROID 112 mcg TAB PO SCH (08:31)
--- NOTE | 2020-11-05 12:44 | CT ---
HISTORYSTROKE LIKE SYMPTOMSSTUDYCT brain without IV contrastCOMPARISONCT 11/03/2020TECHNIQUEMultiple axial images of the brain were obtained without IV contrast. Dose reduction techniques including Automated Exposure Control (AEC) and adjustment of mA and kV were utilized.FINDINGSMild mucosal thickening is seen in the paranasal sinuses. Few likely benign lucencies are seen in the calvarium and clivus. No acute intracranial hemorrhage or mass effect is seen. Moderate diffuse volume loss is seen in the brain with compensatory enlargement of the ventricular system. Mild chronic small vessel ischemic changes are seen.There is evolving CVA in the left chan radiata and left external capsule that is lower in density than on prior CT. There is new area of hypodensity in the right frontal white matter that may be due to recent ischemic changes, also.IMPRESSIONAreas of possible recent CVA are seen in the right frontal white matter, left chan radiata and left external capsule. No significant mass effect or hemorrhagic transformation is seen. Findings could be confirmed with MRI or follow-up CT brain could be performed in a few weeks time.A few likely benign lucencies are seen in the clivus and calvarium. These could be evaluated with MRI or re-evaluated on follow-up CT.Electronically signed by: Andrea Castro (Nov 05, 2020 12:42:21)
--- NOTE | 2020-11-05 14:20 | MRI ---
HISTORYCVASTUDYBRAIN W/O CONCOMPARISONCT same dayTECHNIQUEMultiplanar multi-sequence MRI of the brain was obtained utilizing standard departmental protocol. Sagittal and axial T1 weighted images were obtained. Axial T2 and flair weighted images were performed as well. Axial diffusion weighted and ADC trace mapping was performed.FINDINGSThe midline structures appear unremarkable. The evaluation of the brain parenchyma demonstrates no abnormal signal characteristics to suggest intraparenchymal mass or hemorrhage. No extra-axial fluid collections are observed. The ventricular system appears symmetric and nondilated. The CP angle is normal in its appearance without brainstem mass or evidence for acoustic neuroma. The flow voids on both T1 and T2 weighted imaging appear unremarkable. Evaluation of the diffusion weighted imaging does no demonstrate restricted diffusion in the left chan radiata and external capsule compatible with subacute infarct. No other areas of acute/subacute infarction are seen.. Scattered small vessel ischemic changes are noted throughout the white matter along with age-appropriate atrophy. The extracranial structures are unremarkable.IMPRESSIONSubacute infarct involving the left coronal radiata and external capsule as above..Electronically signed by: NOLA MOONEY (Nov 05, 2020 14:19:21)
[2020-11-05] MEDS: PLAVIX PO SCH (14:23)
[2020-11-05] MEDS: PROVENTIL NEB TX 0.083% 2.5MG/ 3ML NEB SCH ×3 (17:42→21:50)
[2020-11-05] MEDS: PULMICORT NEB TX 0.5 MG NEB SCH ×2 (18:32→21:50)
[2020-11-06] MEDS ORDERED: ZESTRIL TAB 20 MG ONE (08:34)
[2020-11-06] MEDS ORDERED: GLUCOPHAGE ONE (08:34)
[2020-11-06] MEDS: COREG TAB 3.125 MG PO SCH (09:01)
[2020-11-06] MEDS: ZESTRIL TAB 20 MG PO SCH (09:01)
[2020-11-06] MEDS: ASPIRIN 81 MG CHEWTAB PO SCH (09:01)
[2020-11-06] MEDS: ESTRACE PO SCH (09:01)
[2020-11-06] MEDS: SYNTHROID 112 mcg TAB PO SCH (09:02)
[2020-11-06] MEDS: PROTONIX TAB 40 MG PO SCH (09:02)
[2020-11-06] MEDS: PLAVIX PO SCH (09:02)
[2020-11-06] MEDS: HEMOCYTE-PLUS PO SCH (09:02)
[2020-11-06] MEDS: LOVENOX INJ 40 MG SYR SC SCH (09:02)
[2020-11-06] MEDS: GLUCOPHAGE PO SCH (09:17)
[2020-11-06] MEDS: PROVENTIL NEB TX 0.083% 2.5MG/ 3ML NEB SCH ×2 (09:45→13:45)
[2020-11-06] MEDS: PULMICORT NEB TX 0.5 MG NEB SCH (09:45)
[2020-11-06 11:41] VITALS: BP 147/69
--- NOTE | 2020-11-06 15:30 | DR.H&P ---
H&P - History & Physical for Day of: H&P Date: 11/03/20 - Chief Complaint Chief Complaint: right side weakness - History of Present Illness History of Present Illness: pt is 80 wf er admission with co i think i had a stroke today. pt received covid shot today and about 1300 when walking up her ramp noted to have her right foot dragging. it was later that she noted she had what she thought to be slurred speech while talking to a frined on the phone. she had ems come out and evaluate her earlier but she declined transport then. she has now called a friend to brng her to the hospital for evaluation. Pt has pmh of cad, dm, htn, oa. pt admitted for treatment and evaluation of acute illness. - Past Medical History Past Medical History: DC, Coronary Artery Disease, Hypertension, Diabetes, GERD, Arthritis - Past Surgical History Surgical History: Angioplasty/Stents, Cholecystectomy, Hysterectomy, Joint Replacement - Family History Family Medical History: Diabetes Mellitus, Cancer, [place], Hypertension - Social History Does patient currently use any type of tobacco product: No Have you used tobacco products in the last 12 months: No Type of Tobacco Use: None Does any household member use tobacco: No Alcohol Use: None Drug Use: None - Medications Home Medications: Penicillins Allergy (Verified 09/15/18 16:24) New Prescriptions aspirin [Aspirin Low Dose] 81 mg PO ONCE #30 tab 11/06/20 [Rx] clopidogrel [Plavix] 75 mg PO ONCE #30 tab 11/06/20 [Rx] - Review of Systems Constitutional: Weakness Eyes: No Symptoms Reported ENT: No Symptoms Reported Respiratory: No Symptoms Reported Cardiovascular: No Symptoms Reported Genitourinary: No Symptoms Reported Musculoskeletal: No Symptoms Reported Skin: No Symptoms Reported Neurological: Weakness (right hand, right foot) - Physical Exam Vital Signs: Temperature 97.7 F Pulse Rate [Left] 68 Pulse Rate [Left Brachial] 70 Pulse Rate 65 Respiratory Rate 18 Blood Pressure [Right Arm] 147/69 Blood Pressure [Left Arm] 122/59 Blood Pressure 178/75 O2 Sat by Pulse Oximetry 96 Oriented: Normal Eyes: Normal Ear: Normal Nose: Normal Throat: Normal Respiratory: Clear Throughout Cardiovascular: Normal : Normal Auscultation: Bowel Sounds: Normal Palpation: Normal Tenderness: Normal Skin: Normal Musculoskeletal: Sensory Deficit (mild to right hand). negative: Motor Deficit Psychiatric: Normal Mood Description: Calm Speech Pattern: Clear, Appropriate, Slurred (minimal slur) - Assessment/Plan (1) Neurological deficit, transient Status: Acute Plan: ADMIT, CT HEAD IN ER. MRI/MRA HEAD AND NECK, CE, EKG AND CXR ON ADMISSION. BP CONTROL, BS CONTROL. IV HYDRATION, VERIFY AND RESUME HOME MEDICATION. LOVENOX, ASPIRIN THERAPY (2) CAD (coronary artery disease) Status: Acute (3) Diabetes Status: Acute (4) Hypertension Status: Acute - Allergies Allergies/Adverse Reactions: Allergies Allergy/AdvReac Type Severity Reaction Status Date / Time Penicillins Allergy Verified 09/15/18 16:24
== END 2020-11-06 14:55 | disposition home or self-care (01) | DRG 66 ==
LOC: ER 16:27 → MED/SURG 16:27
PROVIDERS: ADMIT Internal Medicine; ATTEND Internal Medicine
DX: R20.0 Anesthesia of skin; I11.9 Hypertensive heart disease without heart failure; K21.9 Gastro-esophageal reflux disease without esophagitis; R94.4 Abnormal results of kidney function studies; E11.65 Type 2 diabetes mellitus with hyperglycemia; I25.10 Atherosclerotic heart disease of native coronary artery without angina pectoris; I63.89 Other cerebral infarction; R68.89 Other general symptoms and signs; R47.81 Slurred speech

== ENCOUNTER 2023-01-31 16:20 | Observation (INO) ==
--- NOTE | 2023-01-31 17:05 | DR.EXTPAIN ---
HPI <Isaiah Woody - Last Filed: 02/01/23 11:59> Time seen Time Seen by Provider: 01/31/23 17:04 PCP Primary Care Physician: Rae Complaint/Symptoms Chief Complaint Doctor Comments: 82 y/o female presents for evaluation. Pt had a RLE stent placed yesterday in [place]. They attempted to access via the right groin, but ended up accessing the left as well. Pt presents with pain of the LLQ/L groin, worsened today. Pain is sharp, does not radiate. Is worse with palpation, moving. Nothing makes it better. Denies fever, URI symptoms, bowel or bladder complaints. Had her plavix held for a day, has continued her ASA. No nausea, vomiting, chest pain, or shortness of breath. Chief Complaint:: Patient states she had a RLE stent placed yesterday in [facility] per Dr Goyal and her left groin is extremely painful and the pain has increased since yesterday. COVID-19 Coronavirus risk:travel/contact w/high risk person: No Has patient experienced Coronavirus symptoms: No Source History Provided: Patient Mode of arrival Mode of Arrival: Ambulatory Timing Onset of Chief Complaint: 01/31/23 PMH <Isaiah Teresaabdi - Last Filed: 02/01/23 11:59> PMH Past Medical History: Yes Past Medical History: Arthritis, Coronary Artery Disease, Diabetes, GERD, Hypertension and [place] Past Surgical History: Yes Surgical History: Angioplasty/Stents, Cholecystectomy, Hysterectomy and Joint Replacement Family History History of Family Medical Conditions: Yes Family Medical History: Diabetes Mellitus, Cancer, [place] and Hypertension Social History Does patient currently use any type of tobacco product: No Have you used tobacco products in the last 12 months: No Type of Tobacco Use: None Does any household member use tobacco: No Alcohol Use: None Do you use any recreational Drugs:: No Lives With: Alone Lives Where: Home Travel Risk Coronavirus risk:travel/contact w/high risk person: No Has patient experienced Coronavirus symptoms: No Infectious screening In the last 2 months have you had wt loss of >10#?: NO Have you had fever, night sweats or hemotysis?: No Have you traveled outside the country in the last 6 months?: No Isolation: Standard ROS <Isaiah Woody - Last Filed: 02/01/23 11:59> Review of Systems Constitutional: Weakness Eyes: No Symptoms Reported ENTM: No Symptoms Reported Respiratoy: No Symptoms Reported Cardiovascular: No Symptoms Reported Gastrointestinal/Abdominal: See HPI Genitourinary: No Symptoms Reported Neurological: Weakness Musculoskeletal: No Symptoms Reported Integumentary: No Symptoms Reported All Other Systems: Reviewed and Negative PE <Isaiah Woody - Last Filed: 02/01/23 11:59> Vital Signs Vitals: Temperature 98.8 F Pulse Rate 69 Respiratory Rate 20 Blood Pressure [Right Arm] 147/69 Blood Pressure 131/59 O2 Sat by Pulse Oximetry 97 General General Appearance: Alert and In No Apparent Distress Eyes Eye exam: PERRL and EOMI ENT ENT Exam: Mucous Membranes Moist Neck Neck Exam: Normal Inspection Respiratory Respiratory Exam: Normal Lung Sounds Bilat; negative Accessory Muscle Use or Respiratory Distress Cardiovascular Cardiovascular Exam: Regular Rate, Normal Rhythm and Normal Heart Sounds Abdominal Exam Abdominal Exam: Normal Bowel Sounds, Soft and Tenderness (Left side of pannus, LLQ. No guarding or rebound. ) Extremities Extremities Exam: Normal Inspection; negative Edema Back Back Exam: Normal Inspection; negative Tenderness Neurological Neurological Exam: Alert, Oriented X3 and CN II-XII Intact; negative Motor Sensory Deficit Skin Skin Exam: Warm, Dry and Other (mild scattered ecchymosis of left lower pannus, left groin.) <Jennifer LiragginsDivinaShaw - Last Filed: 01/31/23 21:10> Vital Signs Vitals: Temperature 98.8 F Pulse Rate 69 Respiratory Rate 20 Blood Pressure [Right Arm] 147/69 Blood Pressure 131/59 O2 Sat by Pulse Oximetry 97 COURSE <Isaiah Woody - Last Filed: 02/01/23 11:59> Treatment Treatment: 82 y/o female, s/p stent of the RLE yesterday at another facility yesterday. + worsening pain of the LLQ/pannus. W/u initiated. Pt given IV analgesia. Not having pure groin pain or swelling, but more abd/pannus pain. Will check baseline labs, CT of the abd/pelvis. 1945 - CT concerning for blood in the left groin/LLQ, could not r/o active bleeding. Radiology recommended US to r/o pseudoaneurysm, and CTA pelvis to look for continued bleeding. Pt prefers to remain here if we can take care of this. Dr Lares construction mgr for surgery. Call put out to discuss with him, as he is a Vascular Surgeon. US ordered to r/o pseudoaneurym. Pt will be signed over to my relief . <Jennifer Ellis - Last Filed: 01/31/23 21:10> Treatment Treatment: 82 y/o female, s/p stent of the RLE yesterday at another facility yesterday. + worsening pain of the LLQ/pannus. W/u initiated. Pt given IV analgesia. Not having pure groin pain or swelling, but more abd/pannus pain. Wi ll check baseline labs, CT of the abd/pelvis. 1944 - CT concerning for blood in the left groin/LLQ, could not r/o active bleeding. Radiology recommended US to r/o pseudoaneurysm, and CTA pelvis to look for continued bleeding. Pt prefers to remain here if we can take care of this. Dr Lares construction mgr for surgery. Call put out to discuss with him, as he is a Vascular Surgeon. US ordered to r/o pseudoan eurym. Pt will be signed over to my relief . 20:00 Dr Woody spoke to Dr Lares(Vascular Surgeon construction mgr)Patient will be admitted to [facility].Dr Bob is construction [facility] Dr Woody has dis cussed paln with patient and her family. ROR <Isaiah Woody - Last Filed: 02/01/23 11:59> Labs Reviewed Laboratory Results Reviewed?: Yes Result Diagrams: 02/01/23 05:12 02/01/23 05:12 Laboratory: WBC 8.6 X10^3/uL (3.6-10.0) 01/31/23 17:33 RBC 3.55 X10^6/uL (3.5-5.4) 01/31/23 17:33 Hgb 10.4 g/dL (12.0-16.0) L 01/31/23 17:33 Hct 30.5 % (36.0-47.0) L 01/31/23 17:33 MCV 86.1 fL (80.0-100.0) 01/31/23 17:33 MCH 29.2 pg (27.0-34.0) 01/31/23 17: MCHC 33.9 g/dL (33.0-35.0) 01/31/23: RDW 14.2 % (11.6-16.5) 01/31/23 17: Plt Count 138 X10^3/uL (150.0-450.0) L 01/31/23 17: MPV 8.4 fL (7.4-11.0) 01/31/23 17: Neut % (Auto) 70.8 % (42.0-75.0) 01/31/23 17: Lymph % (Auto) 20.1 % (21.0-51.0) L 01/31/23 17: Hodgeman % (Auto) 7.5 % (0.0-13.0) 01/31/23 17: Eos % (Auto) 1.2 % (0.9-2.9) 01/31/23: Baso % (Auto) 0.4 % (0.2-1.0) 01/31/23: Neut # (Auto) 6.1 x10^3/uL (2.2-4.8) H 01/31/23 17: Lymph # (Auto) 1.7 X10^3/uL (1.3-2.9) 01/31/23 17: Hodgeman # (Auto) 0.6 x10^3/uL (0.3-0.8) 01/31/23 17: Eos # (Auto) 0.1 x10^3/uL (0.0-0.2) 01/31/23: Baso # (Auto) 0.0 X10^3/uL (0.0-0.1) 01/31/23: Absolute Nucleated RBC 0.0 /100WBC 01/31/23: PT 13.6 SECONDS (11.8-14.3) 01/31/23 17: INR Target Range - 01/31/23: INR 1.07 (0.8-1.3) 01/31/23: APTT 25.3 SECONDS (22.9-36.5) 01/31/23 17: PTT Comment - 01/31/23 17:33 Sodium 138 mmol/L (136-145) 01/31/23 17:33 Corrected Sodium 138 mmol/L (136-145) 01/31/23 17:33 Potassium 4.4 mmol/L (3.5-5.1) 01/31/23 17:33 Chloride 103 mmol/L (98-107) 01/31/23 17:33 Carbon Dioxide 24.8 mmol/L (21-32) 01/31/23 17:33 BUN 25 mg/dL (7-18) H 01/31/23 17:33 Creatinine 1.15 mg/dL (0.55-1.02) H 01/31/23 17:33 Est GFR (MDRD) Af Amer 58 (>60) L 01/31/23 17:33 Est GFR (MDRD) Non-Af 48 (>60) L 01/31/23 17:33 Glucose 111 mg/dL (65-99) H 01/31/23 17:33 Calcium 8.4 mg/dL (8.5-10.1) L 01/31/23 17:33 Corrected Calcium TNP 01/31/23 17:33 Total Bilirubin 0.60 mg/dL (0.2-1.0) 01/31/23 17:33 AST 17 Units/L (15-37) 01/31/23 17:33 ALT 12 Units/L (12-78) 01/31/23 17:33 Alkaline Phosphatase 71 Units/L (46-116) 01/31/23 17:33 Total Protein 6.3 g/dL (6.4-8.2) L 01/31/23 17:33 Albumin 3.4 g/dL (3.4-5.0) 01/31/23 17:33 Globulin 2.9 g/dL (2.5-4.5) 01/31/23 17:33 Albumin/Globulin Ratio 1.2 Ratio (1.1-2.1) 01/31/23 17:33 Labs acceptable, has mild anemia. XRAY XRAY Interpreted by: Radiologist X-ray Results: + stranding left inguinal/left pelvis concerning for blood. CAnnot r/o psudoaneurysm, or continued bleeding. <Jennifer Ellis - Last Filed: 01/31/23 21:10> Labs Reviewed Laboratory: WBC 8.6 X10^3/uL (3.6-10.0) 01/31/23 17: RBC 3.55 X10^6/uL (3.5-5.4) 01/31/23 17: Hgb 10.4 g/dL (12.0-16.0) L 01/31/23 17: Hct 30.5 % (36.0-47.0) L 01/31/23: MCV 86.1 fL (80.0-100.0) 01/31/23 17: MCH 29.2 pg (27.0-34.0) 01/31/23: MCHC 33.9 g/dL (33.0-35.0) 01/31/23: RDW 14.2 % (11.6-16.5) 01/31/23: Plt Count 138 X10^3/uL (150.0-450.0) L 01/31/23: MPV 8.4 fL (7.4-11.0) 01/31/23 17: Neut % (Auto) 70.8 % (42.0-75.0) 01/31/23 17: Lymph % (Auto) 20.1 % (21.0-51.0) L 01/31/23: Hodgeman % (Auto) 7.5 % (0.0-13.0) 01/31/23: Eos % (Auto) 1.2 % (0.9-2.9) 01/31/23: Baso % (Auto) 0.4 % (0.2-1.0) 01/31/23: Neut # (Auto) 6.1 x10^3/uL (2.2-4.8) H 01/31/23 17: Lymph # (Auto) 1.7 X10^3/uL (1.3-2.9) 01/31/23 17: Hodgeman # (Auto) 0.6 x10^3/uL (0.3-0.8) 01/31/23 17: Eos # (Auto) 0.1 x10^3/uL (0.0-0.2) 01/31/23 17:33 Baso # (Auto) 0.0 X10^3/uL (0.0-0.1) 01/31/23 17:33 Absolute Nucleated RBC 0.0 /100WBC 01/31/23 17:33 PT 13.6 SECONDS (11.8-14.3) 01/31/23 17:33 INR Target Range - 01/31/23 17:33 INR 1.07 (0.8-1.3) 01/31/23 17:33 APTT 25.3 SECONDS (22.9-36.5) 01/31/23 17:33 PTT Comment - 01/31/23 17:33 Sodium 138 mmol/L (136-145) 01/31/23 17:33 Corrected Sodium 138 mmol/L (136-145) 01/31/23 17:33 Potassium 4.4 mmol/L (3.5-5.1) 01/31/23 17:33 Chloride 103 mmol/L (98-107) 01/31/23 17:33 Carbon Dioxide 24.8 mmol/L (21-32) 01/31/23 17:33 BUN 25 mg/dL (7-18) H 01/31/23 17:33 Creatinine 1.15 mg/dL (0.55-1.02) H 01/31/23 17:33 Est GFR (MDRD) Af Amer 58 (>60) L 01/31/23 17:33 Est GFR (MDRD) Non-Af 48 (>60) L 01/31/23 17:33 Glucose 111 mg/dL (65-99) H 01/31/23 17:33 Calcium 8.4 mg/dL (8.5-10.1) L 01/31/23 17:33 Corrected Calcium TNP 01/31/23 17:33 Total Bilirubin 0.60 mg/dL (0.2-1.0) 01/31/23 17:33 AST 17 Units/L (15-37) 01/31/23 17:33 ALT 12 Units/L (12-78) 01/31/23 17:33 Alkaline Phosphatase 71 Units/L (46-116) 01/31/23 17:33 Total Protein 6.3 g/dL (6.4-8.2) L 01/31/23 17:33 Albumin 3.4 g/dL (3.4-5.0) 01/31/23 17:33 Globulin 2.9 g/dL (2.5-4.5) 01/31/23 17:33 Albumin/Globulin Ratio 1.2 Ratio (1.1-2.1) 01/31/23 17:33 Opioid <Isaiah Woody - Last Filed: 02/01/23 11:59> Opioid Risk Tool Age (Benjamin box if 16-45): No History of Preadolescent Sexual Abuse: No Total: 0 Total Score Risk Category: Low Risk Copyright: Maikol GROVE predicting aberrant behaviors <Jennifer Ellis - Last Filed: 01/31/23 21:10> Opioid Risk Tool Total: 0 Total Score Risk Category: Low Risk Discharge Plan Diagnosis Discharge Problem: Left inguinal pain Discharge Plan Patient Disposition: ADMITTED INPATIENT Condition: Stable
[2023-01-31 17:39] LABS: BASOPHILS % (AUTO) 0.4 % (0.2-1.0); EOSINOPHILS # (AUTO) 0.1 x10^3/uL (0.0-0.2); EOSINOPHILS % (AUTO) 1.2 % (0.9-2.9); HEMATOCRIT 30.5 % (36.0-47.0); HEMOGLOBIN 10.4 g/dL (12.0-16.0); LYMPHOCYTES # (AUTO) 1.7 X10^3/uL (1.3-2.9); LYMPHOCYTES % (AUTO) 20.1 % (21.0-51.0); MEAN CORPUSCULAR HEMOGLOBIN 29.2 pg (27.0-34.0); MEAN CORPUSCULAR HGB CONC 33.9 g/dL (33.0-35.0); MEAN CORPUSCULAR VOLUME 86.1 fL (80.0-100.0); MEAN PLATELET VOLUME 8.4 fL (7.4-11.0); MONOCYTES # (AUTO) 0.6 x10^3/uL (0.3-0.8); MONOCYTES % (AUTO) 7.5 % (0.0-13.0); NEUTROPHILS # (AUTO) 6.1 x10^3/uL (2.2-4.8); NEUTROPHILS % (AUTO) 70.8 % (42.0-75.0); RED BLOOD COUNT 3.55 X10^6/uL (3.5-5.4); RED CELL DISTRIBUTION WIDTH 14.2 % (11.6-16.5); WHITE BLOOD COUNT 8.6 X10^3/uL (3.6-10.0)
[2023-01-31 17:50] LABS: INR 1.07 (0.8-1.3)
[2023-01-31 17:54] LABS: ALANINE AMINOTRANSFERASE 12 Units/L (12-78); ALBUMIN 3.4 g/dL (3.4-5.0); ALKALINE PHOSPHATASE 71 Units/L (46-116); ASPARTATE AMINO TRANSFERASE 17 Units/L (15-37); BLOOD UREA NITROGEN 25 mg/dL (7-18); CALCIUM 8.4 mg/dL (8.5-10.1); CARBON DIOXIDE 24.8 mmol/L (21-32); CHLORIDE 103 mmol/L (98-107); COR NA(FOR HYPERGLY) 138 mmol/L (136-145); CREATININE 1.15 mg/dL (0.55-1.02); SODIUM 138 mmol/L (136-145); TOTAL PROTEIN 6.3 g/dL (6.4-8.2); eGFR NON BLACK RACES 48 (>60)
[2023-01-31] MEDS ORDERED: MORPHINE SULFATE INJ 4 MG IVP ONE (18:05)
[2023-01-31] MEDS ORDERED: MORPHINE SULFATE INJ 4 MG ONE (18:18)
[2023-01-31] MEDS ORDERED: NS 100 ML IV 100 ML ONE (18:21)
--- NOTE | 2023-01-31 19:25 | CT ---
HISTORYPatient states she had a bilary stent placed yesterday in [facility] per Dr Goyal and her left groin is extremely painful and the pain has increased since yesterday.STUDYABDOMEN/PELVIS WITH CONCOMPARISONnoneTECHNIQUEMultiple axial images from the thoracic inlet to the pubic symphysis AFTER the administration of IV contrast. Dose reduction techniques including Automated Exposure Control (AEC) and adjustment of mA and kV were utilized.FINDINGS3 millimeter micro nodule left lung base. 3 millimeter micro nodule right lung base, both too small further characterize.The abdominal aorta tapers normally with scattered atherosclerotic plaque. The liver is unremarkable. There are clips in the gallbladder fossa from prior cholecystectomy. There is mild distension of the common bile duct possibly due to reservoir effect.Adrenal glands are normal. The kidneys are not obstructed. Left renal cysts. Possible lower pole right renal cyst. Normal spleen contours. Mild atrophy of the pancreas. Unremarkable stomach.Stranding and induration are noted in the left inguinal region extending into the left low pelvis suggestive of blood products. There is stranding and focal dilatation at the level of the left common femoral artery and vein. A hematoma or pseudoaneurysm could be present. Blood products track into the subcutaneous soft tissues of the left groin and pelvic sidewall.The appendix is identified and is normal. 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 The delayed phase images do not extend beyond the iliac crests and exclude the area of current concern.IMPRESSIONStranding, blood products and edema in the left groin presumed related to vascular intervention. Hematoma or pseudoaneurysm may be present and I cannot exclude active bleeding with this study. Consider CT angiography of the pelvis with arterial and delayed phases. Additionally, ultrasound may be useful to evaluate for pseudoaneurysm.Electronically signed by: Jason Byers (Jan 31, 2023 19:24:04)
--- NOTE | 2023-01-31 20:26 | US ---
HISTORYLT GROIN PAIN, S/P CATH X 1 DAYSTUDYEXTREMITY ultrasound to evaluate for possible (PSEUDOANEURYSM)COMPARISONCT of the abdomen and pelvis performed the same dayTECHNIQUEMultiple emery scale and color flow Doppler images of the vascular system of the left groin region were obtained.FINDINGSNo pseudoaneurysm is detected with ultrasound. A hematoma is present spanning 2.8 x 1.6 x 2.7 centimeters.IMPRESSIONNo pseudoaneurysm detected.Small, focal hematomaElectronically signed by: Jason Byers (Jan 31, 2023 20:24:32)
[2023-01-31] MEDS ORDERED: COREG TAB 3.125 MG PO SCH (22:20)
[2023-01-31] MEDS ORDERED: COLACE CAP 100 MG PO PRN (22:20)
--- NOTE | 2023-01-31 23:26 | DR.CONSULT ---
CONSULT Consultation for Day of: Date: 01/31/23 Chief Complaint Chief Complaint: 82 female who had left leg arterial intervention 3 weeks ago via a right femoral approach and had rightn leg arterial intervention via left groin access. Both procedures done in [place]. C/O severe pain left groin with pain extending over to her pubic tubercle. Ultrasound of the left groin show 2.7x 2.8 cm hematoma, no pseudoaneurysm. CT scan shows stranding in the left groin consistent with blood. Allergies Allergies Allergy/AdvReac Type Severity Reaction Status Date / Time Penicillins Allergy Unknown Verified 01/31/23 20:47 History of Present Illness History of Present Illness: as above Past Medical History Past Medical History: Arthritis, Coronary Artery Disease, Diabetes, GERD, Hypertension and [place] Past Surgical History Surgical History: Angioplasty/Stents, Cholecystectomy, Hysterectomy and Joint Replacement Family History Family Medical History: Diabetes Mellitus, Cancer, [place] and Hypertension Social History Does patient currently use any type of tobacco product: No Have you used tobacco products in the last 12 months: No Type of Tobacco Use: None Does any household member use tobacco: No Alcohol Use: None Medications Home Medications: Penicillins Allergy (Unknown, Verified 01/31/23 20:47) CONTINUE taking the following medications carvedilol 3.125 mg tablet 1 tab PO BID 01/31/23 [History] clopidogrel 75 mg tablet 1 tab PO QDAY 01/31/23 [History] levocetirizine 5 mg tablet 1 tab PO QDAY 01/31/23 [History] levothyroxine 112 mcg tablet 1 tab PO QDAY 01/31/23 [History] lisinopril 20 mg tablet 2 tab PO DAILY 01/31/23 [History] omeprazole 40 mg capsule,delayed release 1 cap PO QDAY 01/31/23 [History] repaglinide 0.5 mg tablet 1 tab PO QDAY 01/31/23 [History] Review of Systems Constitutional: See HPI Eyes: No Symptoms Reported ENT: No Symptoms Reported Respiratory: No Symptoms Reported Cardiovascular: No Symptoms Reported Gastrointestinal: No Symptoms Reported Genitourinary: No Symptoms Reported Musculoskeletal: No Symptoms Reported Skin: No Symptoms Reported Neurological: No Symptoms Reported Physical Exam Vital Signs: Temperature 98.8 F Pulse Rate [Left] 72 Pulse Rate 69 Respiratory Rate 20 Blood Pressure [Right Arm] 147/69 Blood Pressure 131/59 O2 Sat by Pulse Oximetry 98 Oriented: Normal, Time, Person and Place Eyes: Normal Ear: Normal Nose: Normal Throat: Normal Respiratory: Clear Throughout Cardiovascular: Normal and Other (Both legs warm. Mild tenderness and swelling of the left groin. No pulsatile mass in the left groin. ) : Normal Auscultation: Bowel Sounds: Normal Palpation: Normal Tenderness: Normal Skin: Normal Musculoskeletal: Normal Psychiatric: Normal Mood Description: Calm Affect: Normal Speech Pattern: Clear Plan (1) Hematoma following angiography: Status: Acute Plan: Admit , sequential CBC, CTA of aorta with b/l runoff
[2023-02-01] MEDS: NORCO 5/325 MG TAB PO PRN ×3 (05:44→20:07)
[2023-02-01 05:45] LABS: BASOPHILS % (AUTO) 0.7 % (0.2-1.0); EOSINOPHILS # (AUTO) 0.2 x10^3/uL (0.0-0.2); EOSINOPHILS % (AUTO) 2.6 % (0.9-2.9); HEMATOCRIT 29.7 % (36.0-47.0); HEMOGLOBIN 10.1 g/dL (12.0-16.0); LYMPHOCYTES # (AUTO) 2.1 X10^3/uL (1.3-2.9); LYMPHOCYTES % (AUTO) 32.3 % (21.0-51.0); MEAN CORPUSCULAR VOLUME 85.3 fL (80.0-100.0); MEAN PLATELET VOLUME 9.1 fL (7.4-11.0); MONOCYTES # (AUTO) 0.7 x10^3/uL (0.3-0.8); MONOCYTES % (AUTO) 10.5 % (0.0-13.0); NEUTROPHILS # (AUTO) 3.6 x10^3/uL (2.2-4.8); NEUTROPHILS % (AUTO) 53.9 % (42.0-75.0); RED BLOOD COUNT 3.48 X10^6/uL (3.5-5.4); RED CELL DISTRIBUTION WIDTH 14.3 % (11.6-16.5); WHITE BLOOD COUNT 6.6 X10^3/uL (3.6-10.0)
[2023-02-01 05:54] LABS: ALANINE AMINOTRANSFERASE 18 Units/L (12-78); ALBUMIN 3.3 g/dL (3.4-5.0); ALKALINE PHOSPHATASE 71 Units/L (46-116); ASPARTATE AMINO TRANSFERASE 29 Units/L (15-37); BLOOD UREA NITROGEN 20 mg/dL (7-18); CALCIUM 8.7 mg/dL (8.5-10.1); CARBON DIOXIDE 27.2 mmol/L (21-32); CHLORIDE 106 mmol/L (98-107); COR CA(FOR HYPOALB) 9.3 mg/dL (8.5-10.1); CREATININE 1.05 mg/dL (0.55-1.02); SODIUM 140 mmol/L (136-145); TOTAL PROTEIN 6.2 g/dL (6.4-8.2); eGFR NON BLACK RACES 53 (>60)
--- NOTE | 2023-02-01 06:53 | RAD ---
HISTORYShortness of breathSTUDYChest AP portableCOMPARISONNoneFINDINGSHeart size is normal. Araceli are normal. Lung witt are clear. No pleural effusions are identified. Bony thorax is unremarkable.IMPRESSIONNo significant abnormality identifiedElectronically signed by: MIGUELANGEL DUMONT (Feb 01, 2023 06:52:51)
[2023-02-01] MEDS: PriLOSEC PO SCH (08:41)
[2023-02-01] MEDS: ZESTRIL TAB 40 MG PO SCH (08:42)
[2023-02-01] MEDS: ZyrTEC TAB 10 MG PO SCH (08:42)
[2023-02-01] MEDS: COREG TAB 3.125 MG PO SCH ×2 (08:42→23:51)
[2023-02-01] MEDS: FERROUS GLUCONATE PO SCH (08:43)
[2023-02-01] MEDS: SYNTHROID 112 mcg TAB PO SCH (08:43)
[2023-02-01] MEDS: PATIENT'S HOME MEDICATION PO SCH (08:43)
[2023-02-01] MEDS: LOVENOX INJ 40 MG SYR SC SCH (08:47)
[2023-02-01] MEDS ORDERED: ZESTRIL TAB 20 MG PO SCH (09:00)
[2023-02-01] MEDS ORDERED: PATIENT'S HOME MEDICATION PO SCH (09:00)
[2023-02-01] MEDS ORDERED: ESTRACE PO SCH (09:00)
[2023-02-01] MEDS ORDERED: PATIENT'S HOME MEDICATION (Ferrous Sulfate 325 mg (65 mg iron) Tablet) PO SCH (09:00)
[2023-02-01] MEDS ORDERED: PROTONIX TAB 40 MG PO SCH (09:00)
--- NOTE | 2023-02-01 13:47 | DR.H&P ---
H&P - History & Physical for Day of: H&P Date: 01/31/23 - Chief Complaint Chief Complaint: left lower inguinal/pelvic pain - History of Present Illness History of Present Illness: PT IS 82 WF, ER ADMISSION AFTER PRESENTING WITH CO LEFT INGUINAL PAIN FOLLOWING A VASCULAR PROCEDURE ON MONDAY, AT [facility] IN [place]. PT PMH OF HTN, CAD, CVA, OA, DM AND PAD. - Past Medical History Past Medical History: [place], Coronary Artery Disease, Hypertension, Diabetes, GERD, Arthritis - Past Surgical History Surgical History: Angioplasty/Stents, Cholecystectomy, Hysterectomy, Joint Replacement - Family History Family Medical History: Diabetes Mellitus, Cancer, [place], Hypertension - Social History Does patient currently use any type of tobacco product: No Have you used tobacco products in the last 12 months: No Type of Tobacco Use: None Does any household member use tobacco: No Alcohol Use: None Drug Use: None - Medications Home Medications: Penicillins Allergy (Unknown, Verified 01/31/23 20:47) CONTINUE taking the following medications carvedilol 3.125 mg tablet 1 tab PO BID 01/31/23 [History] clopidogrel 75 mg tablet 1 tab PO QDAY 01/31/23 [History] levocetirizine 5 mg tablet 1 tab PO QDAY 01/31/23 [History] levothyroxine 112 mcg tablet 1 tab PO QDAY 01/31/23 [History] lisinopril 20 mg tablet 2 tab PO DAILY 01/31/23 [History] omeprazole 40 mg capsule,delayed release 1 cap PO QDAY 01/31/23 [History] repaglinide 0.5 mg tablet 1 tab PO QDAY 01/31/23 [History] - Review of Systems Constitutional: Weakness Eyes: No Symptoms Reported ENT: No Symptoms Reported Respiratory: No Symptoms Reported Cardiovascular: Edema Gastrointestinal: Nausea Genitourinary: No Symptoms Reported Musculoskeletal: Leg Pain Skin: No Symptoms Reported Neurological: No Symptoms Reported - Physical Exam Vital Signs: Temperature 98.3 F Pulse Rate [Left] 67 Pulse Rate 69 Respiratory Rate 18 Blood Pressure [Left Arm] 122/67 Blood Pressure [Right Arm] 151/66 Blood Pressure 131/59 O2 Sat by Pulse Oximetry 96 Oriented: Normal, Time, Person, Place Eyes: Normal Ear: Normal Nose: Normal Throat: Normal Respiratory: RLL Diminished, LLL Diminished Cardiovascular: Normal : Normal Auscultation: Bowel Sounds: Normal Palpation: Normal Tenderness: Normal Skin: Bruising Musculoskeletal: Left, Leg, Back:Lumbar, Tender Psychiatric: Anxiety Mood Description: Anxious Affect: Anxious Speech Pattern: Clear, Appropriate - Assessment/Plan (1) Hematoma following angiography Status: Acute Plan: PT ADMITTED, BP AND BS CONTROL. VERIFY HOME MEDICATION. PAIN CONTROL, MONITOR H&H. CARIDAC MONITORING. CTA AORTA WITH RUNOFF TODAY (2) Hypertension Status: Acute (3) Diabetes Status: Acute (4) CAD (coronary artery disease) Status: Acute (5) Coronary artery disease Status: None (6) Hypothyroidism Status: None - Allergies Allergies/Adverse Reactions: Allergies Allergy/AdvReac Type Severity Reaction Status Date / Time Penicillins Allergy Unknown Verified 01/31/23 20:47
[2023-02-01] MEDS ORDERED: NS 100 ML IV 100 ML ONE (16:19)
--- NOTE | 2023-02-01 19:12 | CT ---
HISTORYS/P RLE STENT. Peripheral vascular diseaseSTUDYCTA AORTA WITH RUNOFFCOMPARISONPseudoaneurysm ultrasound 01/31/[address] aortogram runoff 02/18/2022TECHNIQUEMultiple CT axial images of the abdomen, pelvis, and lower extremity runoff were obtained before and after using IV contrast. 3D reconstructions utilizing axial MIPS imaging was performed and reviewed. Dose reduction techniques including Automated Exposure Control (AEC) and adjustment of mA and kV were utilized.Stenoses are measured using NASCET criteria.FINDINGSWithout contrast:Atherosclerotic calcification is present in the coronary arteries.Surgical clips are present in the gallbladder fossa from a cholecystectomy.With contrast: The lower pulmonary arteries are well-visualized to segmental branches. No pulmonary emboli.The aorta has a normal caliber with no aneurysm, dissection, or stenosis. All 3 mesenteric vessels are patent. Patent renal arteries.Common iliac and external iliac arteries are widely patent. Both internal iliac arteries are patent.Right lower extremity: There is a mild stenosis in the adductor canal segment of the femoropopliteal artery. Popliteal artery stent is widely patent. Popliteal artery is also widely patent and gives rise to a large anterior tibial artery and peroneal artery which extends to the foot. Posterior tibial artery is occluded at the origin.Left lower extremity: There is a pseudo aneurysm present measuring about 12 mm anterior to the common femoral artery. A very narrow neck is identified measuring about 5 mm in length and about 2-3 mm in diameter. This is just lateral to inferior epigastric artery.Otherwise the femoropopliteal artery has no significant occlusive disease. All 3 branches are patent at the trifurcation and extend to the foot. Posterior tibial artery may be slightly larger than the anterior tibial artery.Body: There is a peripheral subpleural right lower lobe lung nodule which measures about 9 mm. This area was not included on prior studies. Recommend follow-up chest CT in 3-6 months.Multiple renal cysts are present.There is increased density in the left groin, anterior abdominal wall, and the left retroperitoneum extending from the pelvis. This is hematoma probably related to the previous common femoral artery access and the pseudoaneurysm which is present. This is diffuse within fat planes but not focal to suggest a hematoma.Patient has a left knee prosthesis.IMPRESSION1. 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 Minimal hemorrhage into the left groin and into the left pelvic retroperitoneum3. Widely patent right popliteal artery stent4. No significant lower extremity inflow occlusive disease5. Two vessel runoff to the right foot and three-vessel runoff to the left foot6. (9 mm) right lung nodule; recommend follow-up chest CT in 3-6 monthsElectronically signed by: Jitendra Houston (Feb 01, 2023 19:11:22)
--- NOTE | 2023-02-01 22:06 | NOTE.SOAP ---
Soap Note Note for Day of Date of Exam: 02/01/23 Subjective Data Subjective Data: Patient seen by me this AM. Less pain left groin and pelvis. Hgbstable at 10.1 Objective Data Temperature: 98 F Pulse Rate: 70 Respiratory Rate: 18 Blood Pressure: 125/81 O2 Sat by Pulse Oximetry: 96 Objective Data: No m ass effect left groin. CTA done at 5 PM, No active bleeding, 12 mm pseudoaneurysm of left femoral artery with narrow neck. Evidence of blood ( hematoma) into the pelvis. Hgb-10.1 was 10.4 last night Assessment Assessment: Extravasation of blood into pelvis and small left femoral pseudoaneurysm secondary to arterial intervention via the left femoral artery to place right popliteal stent .This appears stable . Plan Plan: Will follow Hgb and exam. If Hgb stable may discharge home . F/u in my office of with operating vascular interven tionalist in [place] in 1-2 weeks and re-evaluate small femoral pseudo aneurysm . It may resolve on its own. If not it can be treated with ultrasound guided thrombin injection in the office setting.
[2023-02-02] MEDS: NORCO 5/325 MG TAB PO PRN ×2 (06:01→12:34)
[2023-02-02 07:07] LABS: BASOPHILS # (AUTO) 0.1 X10^3/uL (0.0-0.1); BASOPHILS % (AUTO) 0.8 % (0.2-1.0); EOSINOPHILS # (AUTO) 0.2 x10^3/uL (0.0-0.2); EOSINOPHILS % (AUTO) 3.3 % (0.9-2.9); HEMATOCRIT 31.5 % (36.0-47.0); HEMOGLOBIN 10.7 g/dL (12.0-16.0); LYMPHOCYTES # (AUTO) 2.2 X10^3/uL (1.3-2.9); MEAN CORPUSCULAR HEMOGLOBIN 29.2 pg (27.0-34.0); MEAN CORPUSCULAR HGB CONC 33.9 g/dL (33.0-35.0); MEAN CORPUSCULAR VOLUME 86.1 fL (80.0-100.0); MEAN PLATELET VOLUME 9.4 fL (7.4-11.0); MONOCYTES # (AUTO) 0.6 x10^3/uL (0.3-0.8); MONOCYTES % (AUTO) 9.1 % (0.0-13.0); NEUTROPHILS # (AUTO) 3.8 x10^3/uL (2.2-4.8); NEUTROPHILS % (AUTO) 54.8 % (42.0-75.0); RED BLOOD COUNT 3.66 X10^6/uL (3.5-5.4); RED CELL DISTRIBUTION WIDTH 14.4 % (11.6-16.5)
[2023-02-02 07:23] LABS: ALBUMIN 3.2 g/dL (3.4-5.0); CALCIUM 8.5 mg/dL (8.5-10.1); CARBON DIOXIDE 25.5 mmol/L (21-32); COR CA(FOR HYPOALB) 9.1 mg/dL (8.5-10.1); CREATININE 1.2 mg/dL (0.55-1.02); TOTAL PROTEIN 6.3 g/dL (6.4-8.2)
[2023-02-02] MEDS: SYNTHROID 112 mcg TAB PO SCH (09:44)
[2023-02-02] MEDS: FERROUS GLUCONATE PO SCH (09:44)
[2023-02-02] MEDS: COREG TAB 3.125 MG PO SCH (09:44)
[2023-02-02] MEDS: LOVENOX INJ 40 MG SYR SC SCH (09:44)
[2023-02-02] MEDS: ZyrTEC TAB 10 MG PO SCH (09:44)
[2023-02-02] MEDS: ZESTRIL TAB 40 MG PO SCH (09:44)
[2023-02-02] MEDS: PriLOSEC PO SCH (09:44)
[2023-02-02] MEDS: PATIENT'S HOME MEDICATION PO SCH (11:51)
[2023-02-02 11:53] VITALS: BP 139/64
== END 2023-02-02 12:48 | disposition short-term general hospital (02) ==
LOC: MED/SURG 16:20 → ER 16:20 → MED/SURG 22:39
PROVIDERS: ADMIT Internal Medicine; ATTEND Internal Medicine
DX: Z86.73 Personal history of transient ischemic attack (TIA), and cerebral infarction without residual deficits; I72.4 Aneurysm of artery of lower extremity; K21.9 Gastro-esophageal reflux disease without esophagitis; I73.89 Other specified peripheral vascular diseases; T81.718A Complication of other artery following a procedure, not elsewhere classified, initial encounter; R60.0 Localized edema; M79.662 Pain in left lower leg; S85.8 Injury of other blood vessels at lower leg level; X58.XXXA Exposure to other specified factors, initial encounter; E11.65 Type 2 diabetes mellitus with hyperglycemia; I25.10 Atherosclerotic heart disease of native coronary artery without angina pectoris; D64.89 Other specified anemias; E03.8 Other specified hypothyroidism; I10 Essential (primary) hypertension; M19.90 Unspecified osteoarthritis, unspecified site; M79.652 Pain in left thigh; R06.02 Shortness of breath; Z98.890 Other specified postprocedural states; Z79.01 Long term (current) use of anticoagulants

== ENCOUNTER 2025-10-06 11:19 | Observation (INO) ==
[2025-10-06] MEDS: NS 1,000 ML IV 1,000 ML IV SCH (14:51)
[2025-10-06] MEDS: ROBITUSSIN DM PO SCH (14:52)
[2025-10-06] MEDS: PROTONIX INJ 40 MG VIAL IVP SCH (14:52)
[2025-10-06] MEDS: ZITHROMAX INJ 500 MG VIAL 500 MG in D5W 250 ML IV 250 ML IV SCH (14:52)
[2025-10-06] MEDS: PULMICORT NEB TX 0.5 MG NEB SCH (14:54)
[2025-10-06] MEDS: XOPENEX 1.25 MG/3 ML NEBULE NEB SCH (14:54)
[2025-10-06 15:06] LABS: MEAN PLATELET VOLUME 9.2 fL (7.4-11.0); RED CELL DISTRIBUTION WIDTH 14.4 % (11.6-16.5)
[2025-10-06 15:16] LABS: COR NA(FOR HYPERGLY) 142 mmol/L (136-145); CREATININE 1.13 mg/dL (0.55-1.02); eGFR NON BLACK RACES 49 (>60)
[2025-10-06 15:29] VITALS: BMI 26.7
--- NOTE | 2025-10-06 16:58 | RAD ---
EXAM: CHEST, PA/LAT ADULT HISTORY: pneumonia; COMPARISON: February 01, 2023 TECHNIQUE: PA and lateral projections, 2 images FINDINGS: Cardiac silhouette is normal in size and configuration. Pulmonary vascular sizes are normal. No effusion. No focal airspace disease. No pneumothorax. No acute osseous abnormality IMPRESSION: No imaging findings of acute cardiopulmonary disease. THIS IS AN ELECTRONICALLY VERIFIED FINAL REPORT 10/06/2025 4:55 PM - Electronically signed by Tomasz Oconnor MD
[2025-10-06] MEDS ORDERED: NORCO 5/325 MG TAB PO PRN (17:27)
--- NOTE | 2025-10-06 17:35 | DR.H&P ---
H&P History & Physical for Day of: H&P Date: 10/06/25 Chief Complaint Chief Complaint: ccc, weakness History of Present Illness History of Present Illness: PT IS 85 WF, DIRECT ADMIT FROM DR VIDES OFFICE WITH FAILURE TO IMPROVE ON OP TREATMENT FOR BRONCHITIS. PT HAD TWO ROCEPHIN IM INJECTIONS AND PO CEFDINIR. PT CONTINUES WITH SEVERE COUGHING SPELLS WITH THICK MUCOUS PRODUCTION. PT ADMITTED FOR EVALUATION AND TREATMENT OF ACUTE ILLNESS Past Medical History Past Medical History: Arthritis, Coronary Artery Disease, CVA, Diabetes, Dyslipidemia, GERD, Hypertension, Hypothyroidism and [place] Past Surgical History Surgical History: Angioplasty/Stents, Cholecystectomy, Hysterectomy and Joint Replacement Family History Family Medical History: Diabetes Mellitus, Cancer, [place] and Hypertension Medications Home Medications: Home Medications Medication Instructions Recorded Confirmed Type atorvastatin 40 mg tablet 40 mg PO QDAY 09/17/2509/17 History carvedilol 3.125 mg tablet 3.125 mg PO BID 09/17/25 History clopidogrel 75 mg tablet 75 mg PO QDAY 09/17/2509/17 History levothyroxine 112 mcg tablet 112 mcg PO QDAY 09/17/25 09/17/25 History lisinopril 20 mg tablet 20 mg PO QDAY 09/17/2509/17 History omeprazole 40 mg capsule,delayed 40 mg PO QDAY 5 09/17/25 History release Allergies Allergies Allergy/AdvReac Type Severity Reaction Status Date / Time Penicillins Allergy Unknown Verified 09/17/25 21:42 Labs 10/06/25 14:56 10/06/25 14:56 Review of Systems Constitutional: Chills, Weakness and Malaise Eyes: No Symptoms Reported ENT: Nose Discharge, Nose Congestion and Throat Pain Respiratory: Cough, Shortness of Breath and Sputum Cardiovascular: No Symptoms Reported Gastrointestinal: Nausea Musculoskeletal: No Symptoms Reported Skin: No Symptoms Reported Neurological: Weakness Oriented: Normal Eyes: Normal Ear: Normal Throat: Red Respiratory: Rhonchi Throughout, RLL Diminished and LLL Diminished Cardiovascular: Normal Auscultation: Bowel Sounds: Normal Palpation: Normal Tenderness: Normal Skin: Decreased Turgur Musculoskeletal: Back:Lumbar and Motor Deficit Psychiatric: Depression Affect: Depressed Speech Pattern: Clear and Appropriate Assessment/Plan (1) Acute bronchitis: Status: Acute Plan: ADMIT, SPUTUM CULTURE CXR ON ADMISSION BS AND BP CONTROL IV HYDRATION PRN SUPPLEMENTAL O2 AND RESP THERAPY (2) CAD (coronary artery disease): Status: Acute (3) Hypertension: Qualifiers: Hypertension type: unspecified Qualified Code(s): I10 - Essential (primary) hypertension Status: Acute
[2025-10-06] MEDS: LIPITOR TAB 40 MG PO SCH (18:05)
[2025-10-06] MEDS: COREG TAB 3.125 MG PO SCH (22:15)
[2025-10-06] MEDS: NovoLIN R (or HumuLIN R) SUBCUT PRN (22:16)
[2025-10-07 06:06] LABS: MEAN PLATELET VOLUME 9.7 fL (7.4-11.0); RED CELL DISTRIBUTION WIDTH 13.9 % (11.6-16.5)
[2025-10-07 06:19] LABS: COR CA(FOR HYPOALB) 9.2 mg/dL (8.5-10.1); COR NA(FOR HYPERGLY) 142 mmol/L (136-145); CREATININE 1.09 mg/dL (0.55-1.02); eGFR NON BLACK RACES 51 (>60)
[2025-10-07] MEDS ORDERED: ZESTRIL TAB 20 MG ONE (09:39)
[2025-10-07] MEDS: PLAVIX PO SCH (09:46)
[2025-10-07] MEDS: ZESTRIL TAB 20 MG PO SCH (09:47)
[2025-10-07] MEDS: LOVENOX INJ 40 MG SYR SC SCH (11:45)
[2025-10-07] MEDS: SNACK - Diabetic Appropriate PO SCH (20:41)
[2025-10-08 05:43] LABS: MEAN PLATELET VOLUME 9.4 fL (7.4-11.0); RED CELL DISTRIBUTION WIDTH 14.2 % (11.6-16.5)
[2025-10-08 06:02] LABS: COR CA(FOR HYPOALB) 9.1 mg/dL (8.5-10.1); COR NA(FOR HYPERGLY) 141.0 mmol/L (136-145); CREATININE 1.14 mg/dL (0.55-1.02); eGFR NON BLACK RACES 48.0 (>60)
[2025-10-08] MEDS: ZESTRIL TAB 20 MG ONE (10:37)
[2025-10-08 13:48] VITALS: BP 144/67; PULSE 62; RESP 18; TEMP 97.5; O2SAT 96
== END 2025-10-08 14:25 | disposition home or self-care (01) ==
LOC: MED/SURG
PROVIDERS: ADMIT Internal Medicine; ATTEND Internal Medicine
DX: Z79.899 Other long term (current) drug therapy; B97.4 Respiratory syncytial virus as the cause of diseases classified elsewhere; R41.841 Cognitive communication deficit; J20.8 Acute bronchitis due to other specified organisms; I25.10 Atherosclerotic heart disease of native coronary artery without angina pectoris; E11.65 Type 2 diabetes mellitus with hyperglycemia; Z03.818 Encounter for observation for suspected exposure to other biological agents ruled out; Z59.868 Other specified financial insecurity; Z29.89 Encounter for other specified prophylactic measures; I10 Essential (primary) hypertension; R79.89 Other specified abnormal findings of blood chemistry; R05.8 Other specified cough; E83.51 Hypocalcemia; M19.90 Unspecified osteoarthritis, unspecified site; E03.8 Other specified hypothyroidism; Z86.73 Personal history of transient ischemic attack (TIA), and cerebral infarction without residual deficits; D64.89 Other specified anemias